=== PATIENT | male | born 1970 | race Two or more races ===

== ENCOUNTER 2020-11-30 10:00 | Outpatient (REF) | payer MEDICARE, SELFPAY ==
[2020-11-30 10:34] LABS: MANUAL DIFF FLAG NO
[2020-11-30 10:43] LABS: Basophils Percent Auto 0.4 % (0-2); Eosinophils Absolute Auto 0.1 X10*3/uL (0.0-0.4); Eosinophils Percent Auto 2.1 % (0-4); Hematocrit 47.1 % (42-52); Hemoglobin 15.9 g/dl (14.0-18.0); Imm Gran Abs Auto 0.02 X10*3/uL (0.00-0.03); Imm Gran Pct Auto 0.3 % (0.0-0.4); Lymphocytes Absolute Auto 1.6 X10*3/uL (1.2-4.9); Lymphocytes Percent Auto 22.8 % (20-40); Mean Corpuscular HGB Conc 33.8 g/dl (31.0-36.0); Mean Corpuscular Volume 85.8 fL (80-98); Mean Platelet Volume 10.1 fL (9.4-12.4); Monocytes Absolute Auto 0.5 X10*3/uL (0.1-1.2); Monocytes Percent Auto 7.5 % (2-11); Neutrophils Absolute Auto 4.6 X10*3/uL (2.0-8.3); Neutrophils Percent Auto 66.9 % (45-73); Platelet Count 211 X10*3/uL (160-400); Red Blood Count 5.49 X10*6/uL (4.60-5.80); Red Cell Distribution Width 13.1 % (11.0-16.0); White Blood Count 6.8 X10*3/uL (4.8-10.8)
[2020-11-30 11:06] LABS: Alanine Aminotransferase 22 U/L (0-40); Albumin Level 4.4 g/dL (3.5-5.0); Alkaline Phosphatase 84 U/L (39-117); Anion Gap 12 (12-20); Aspartate Amino Transferase 15 U/L (5-37); Bilirubin Total 0.5 mg/dL (0.0-1.0); Blood Urea Nitrogen 15 mg/dL (9-16); Calcium 9.7 mg/dL (8.4-10.2); Carbon Dioxide 29 mmol/L (22-29); Chloride 102 mmol/L (96-108); Cholesterol 185 mg/dL; Estimated Glomerular Filt Rate 58; Glucose Fasting 114 mg/dL (60-99); HDL Cholesterol 52 mg/dL; LDL Cholesterol Calculated 106 mg/dl; Potassium 4.9 mmol/L (3.3-5.1); Sodium 138 mmol/L (135-145); Total Protein 6.8 g/dL (6.5-8.0); Triglycerides 135 mg/dL
[2020-11-30 11:28] LABS: Prostate Specific Antigen 0.29 ng/mL (<0.05-4.0)
== END 2020-11-30 10:01 | disposition home or self-care (01) ==
LOC: HO.LAB 10:00
PROVIDERS: PCP Internal Medicine Medical Oncology; Visit Provider Internal Medicine Medical Oncology
DX: Z12.5 Encounter for screening for malignant neoplasm of prostate (principal); G89.29 Other chronic pain; E66.3 Overweight
CPT/HCPCS: 36415; 80053; 80061; 84153; 85025

== ENCOUNTER 2021-06-13 14:33 | Outpatient (REF) | payer MEDICARE, SELFPAY ==
--- NOTE | ~2021-06-13 | CT_ITS ---
EXAMINATION: CT HEAD WITHOUT CONTRAST CLINICAL INFORMATION: Headaches. COMPARISON: None TECHNIQUE: Contiguous axial imaging was performed from the skull base to vertex without intravenous administration of contrast. This CT examination was performed using dose optimization techniques as appropriate, variously including the following: *Automated exposure control *Adjustment of mA and/or kV according to patient size (this includes techniques or standardized protocols for targeted exams where dose is matched to indication/reason for exam; i.e. extremities or head) *Use of iterative reconstruction technique DLP: 952 mGy-cm FINDINGS: There is no evidence of acute intracranial hemorrhage or territorial infarction. No abnormal mass effect or midline shift is seen. Barrera to white matter differentiation is well preserved. No extra-axial fluid collections are identified. 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 The ventricles are normal in size. There is no abnormal attenuation within the brain parenchyma. The osseous structures and soft tissues are normal. The mastoid air cells are well aerated. There is mild mucosal thickening in the ethmoid sinus air cells. CT/CT head/brain wo con IMPRESSION: No acute intracranial pathology.
== END 2021-06-13 14:34 | disposition home or self-care (01) ==
LOC: HO.CT 14:33
PROVIDERS: Visit Provider Internal Medicine Medical Oncology
DX: R51.9 Headache, unspecified (principal)
CPT/HCPCS: 70450

== ENCOUNTER 2022-09-10 21:44 | Emergency (ER) | payer MEDICARE, MEDICAID, SELFPAY ==
--- NOTE | ~2022-09-10 | XR_ITS ---
EXAMINATION: LEFT TIBIA AND FIBULA, LEFT FOOT CLINICAL INFORMATION: Injury with pain COMPARISON: None available. TECHNIQUE: 2 views tib-fib, 3 views foot FINDINGS: Degenerative changes are present in the with narrowing of the medial compartment and some lateral tibial plateau osteophytes. No tibia or fibular fracture is seen. Some mild degenerative changes are present at the first MTT joint. No foot fractures. No joint effusion. XR/XR tibia fibula LT 2V IMPRESSION: Degenerative changes in the knee and foot without evidence of an acute osseous injury.
--- NOTE | ~2022-09-10 | XR_ITS ---
EXAMINATION: LEFT TIBIA AND FIBULA, LEFT FOOT CLINICAL INFORMATION: Injury with pain COMPARISON: None available. TECHNIQUE: 2 views tib-fib, 3 views foot FINDINGS: Degenerative changes are present in the with narrowing of the medial compartment and some lateral tibial plateau osteophytes. No tibia or fibular fracture is seen. Some mild degenerative changes are present at the first MTT joint. No foot fractures. No joint effusion. XR/XR foot LT 2V IMPRESSION: Degenerative changes in the knee and foot without evidence of an acute osseous injury.
[2022-09-10 22:09] VITALS: BP 136/76; PULSE 93; RESP 16; TEMP 36.9; O2SAT 98; BMI 30.8
--- NOTE | 2022-09-11 00:11 | ED.LOWEXIN ---
HPI - Extremity Injury (Lower) General Chief Complaint: Extremity Injury, Lower Stated Complaint: baez/ foot inj. dropped gallon of paint on himsel Time Seen by Provider: 09/11/22 00:05 Source: patient Mode of arrival: ambulatory Limitations: no limitations History of Present Illness HPI Narrative: A 52-year-old male came in for evaluation of left leg/left foot pain after a container of gal of paint accidentally dropped on his left foot a left leg. Pain and feeling numbness to the lower left leg, no laceration. Related Data Allergies Allergy/AdvReac Type Severity Reaction Status Date / Time morphine [MORPHINE] Allergy Unknown RASH Unverified 12/16/19 16:19 Review of Systems Review of Systems: All other systems are reviewed and are negative Constitutional: Reports as per HPI and Reports no additional constitutional complaints Eyes: Reports as per HPI and Reports no additional eye complaints Reports system reviewed and no additional complaints, except as documented Cardiovascular: Reports as per HPI and Reports no additional cardiovascular complaints Respiratory: Reports as per HPI and Reports no additional respiratory complaints Gastrointestinal: Reports as per HPI and Reports no additional gastrointestinal complaints Genitourinary: Reports no additional female genitourinary complaints Musculoskeletal: Reports no additional musculoskeletal complaints Skin/Breast: Reports system reviewed and no additional complaints, except as docu Psychiatric: Reports no additional psychiatric complaints Endocrine: Reports no additional endocrine complaints Hematologic/Lymphatic: Reports no additional hematologic/lymphatic complaints Allergic/Immunologic: Reports no additional allergic/immunologic complaints Reports system reviewed and no additional complaints, except as documented and Reports Abnormal speech present Physical Exam Vital Signs: Vital Signs: Last Vital Signs Temp 98.4 F 09/10/22 22:09 Pulse 93 09/10/22 22:09 Resp 16 09/10/22 22:09 BP 136/76 09/10/22 22:09 Pulse Ox 98 09/10/22 22:09 O2 Del Method Room Air 09/10/22 22:09 BMI result Body Mass Index 30.8 Vital signs have been reviewed as appeared to be correct. Blood pressure normal. Heart rate normal. Respiration rate normal. Temperature normal. Oxygen saturation normal. Appearance: Alert. Oriented X3. No acute distress. Head: Normal external exam. Normocephalic. Atraumatic. No Jacobo signs noted. No raccoon eyes noted Eyes: PERRLA. EOMI. Conjunctiva and sclera normal. Eyelids normal. ENT: TM's Normal. Pharynx normal. Uvula midline. Moist mucous membranes. No trismus noted. No drooling noted. No muffled voice noted. Neck: Normal inspection. Neck supple. FROM. No adenopathy. Thyroid Normal. No meningeal signs. No neck mass noted. CVS: Normal heart rate and rhythm. Heart sound normal. No murmurs noted. Pulses normal throughout. Respiratory: No respiratory distress. Painless inspiration. Breath sounds normal. No wheezes/rales/rhonchi noted. Chest nontender. No accessory muscle usage noted or decreased air movement noted. Abdomen: Soft and nontender. Bowel sounds normal in all 4 quadrants. No distention noted. No organomegaly noted. No visible injury noted. Back: No CVA tenderness. Full range of motion noted. Skin: Skin warm and dry. Normal skin color. Normal skin turgor. No rashes/lesions/lacerations noted. Extremities: Left lower extremity: Neurovascularly intact, intact PT/DP, sensation is intact to light touch and 2 point discrimination. Neuro: Oriented X 3. Cranial nerve exam: II-XII are grossly intact No motor deficit. No sensory deficit. Reflexes normal. Medical Decision Making Differential Diagnosis Differential Diagnoses: The differential diagnosis associated with the presentation includes (Foot fracture, foot contusion, leg fracture, contusion.) Admission/Observation Consideration of admission/observation: Escalation of care including admission/observation considered Independent Interpretation I performed an independent interpretation of an: Plain X-Ray (Left foot/left tib-fib: No acute fracture) Radiology Impression Discussion of test interpretation with radiology: I have reviewed the radiologist's reading. Discharge Plan Discharge Clinical Impression: Contusion of left lower extremity Patient Disposition: Home, Self-Care Instructions: Contusion in Adults (ED) Additional Instructions: Take ibuprofen 200 mg tablet every 6 hours if needed for pain, apply ice to the left foot and left leg.
[2022-09-11] MEDS: Ibuprofen 600 MG TABLET PO (00:18)
[2022-09-11] MEDS: oxyCODONE HCl Immed Release 5 MG TABLET PO (00:19)
== END 2022-09-11 00:30 | disposition home or self-care (01) ==
PROVIDERS: Emergency Provider Emergency Medicine; PCP Internal Medicine Medical Oncology
DX: S90.32XA Contusion of left foot, initial encounter (principal); X58.XXXA Exposure to other specified factors, initial encounter; Y93.89 Activity, other specified; Y92.9 Unspecified place or not applicable; Y99.9 Unspecified external cause status
CPT/HCPCS: 73590; 73620; 99283; 99284

== ENCOUNTER 2023-12-29 14:08 | Outpatient (AMB) | payer MEDICARE, MEDICAID, SELFPAY ==
--- NOTE | 2023-12-29 14:17 | AM.OFFWIN_ITS ---
Intake Vital Signs 12/29/23 14:23 Height 6 ft 2 in Weight 198 lb 8 oz BMI 25.5 BP 130/72 Blood Pressure Location Lt brachial Position Sitting Pulse 109 H Pulse Source Pulse Oximeter Pulse Oximetry (%) 97 Oxygen Delivery Method Room Air Intake Visit Reasons: EP- uncontrol diabetes Intake Note: Patient is here today for sick visit for uncontrolled DM, high blood sugar, and Migraine. 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 He states he does not have a primary care doctor right now so he has not had medications in quite a long time. His girlfriend is with him today. His 1st complaint is that he has chronic migraines, he has photosensitivity light sensitivity but no nausea or vomiting. He states he did have a head CT which was negative for any acute abnormalities 2 years ago. He has taken Excedrin migraine with no relief in his symptoms. He also will use a red bull with no relief in his symptoms. His 2nd complaint is that he has diabetes in his blood sugars are ?all over the map? he states when he woke up this morning his blood sugar was 152, he states this is part of why he does not feel good. He was on metformin at 1 time but has not taken it in years as he lost his primary care doctor and has nobody to prescribe it for him. His 3rd complaint is that he always feels like he has the flu but he never seems to get anybody else sick. When I asked him to describe this he tells me that he always has the chills and sweats profusely at night. He does endorse a 30 lb weight loss over the last 6 months. He states he has not been trying to eat way and he eats a ton of junk food as well as a lot of meat and potatoes. [facility] Social History Patient Tobacco Use Status: Never used Tobacco Review of Systems Const All systems reviewed & are unremarkable except as noted in HPI and below Physical Exam Vital Signs: Last Vital Signs Pulse 109 H 12/29/23 14:23 BP 130/72 12/29/23 14:23 Pulse Ox 97 12/29/23 14:23 Oxygen Delivery Method Room Air 12/29/23 14:23 BMI result Body Mass Index 25.5 Const General: cooperative, comfortable, no acute distress, well developed and tired appearing Orientation/consciousness: patient oriented x3 Limitations: no limitations HEENT Head: Yes normal to inspection Ears: hearing grossly normal bilaterally General nose exam: Normal external nose present Face and sinus: Yes normal facial exam Eyes General: appearance normal, both eyes and all related structures Neck Neck: Yes normal visual inspection and Yes full ROM Resp Effort & Inspection: normal respiratory effort and able to speak in complete sentences Skin General skin exam: no rashes or lesions noted Neuro General: patient oriented x3 Extrem General: Yes normal to inspection Results AMB Random Glucose (hemocue) AMB Random Glucose (hemocue) 112 mg/dL Last Edit by TARIQ Peña on 12/29/23 14:32 AMB Hemoglobin A1c AMB Hemoglobin A1c 6.5 % Last Edit by TARIQ Peña on 12/29/23 15:11 Results Reviewed Results Reviewed: Laboratory Last Values Random Glu (Clinic) 112 mg/dL 12/29/23 14:22 Assessment & Plan Assessment & Plan (1) Migraines: Code(s): G43.909 - Migraine, unspecified, not intractable, without status migrainosus Qualifiers: Migraine type: unspecified Status migrainosus presence: without status migrainosus Intractability: not intractable Qualified Code(s): G43.909 - Migraine, unspecified, not intractable, without status migrainosus Plan: Sent sumatriptan to patient's pharmacy, explained how to take the medication. (2) Unintentional weight loss: Code(s): R63.4 - Abnormal weight loss Plan: Called the search and rescue officer of [facility] in [place] and obtained an appointment for the patient to establish care with Marimar Falcon PA-C on FridayJanuary 01 at 1pm. Gave the patient all of the information and he assured me he would be there. (3) Night sweats: Code(s): R61 - Generalized hyperhidrosis Plan: See above with a concern for underlying malignancy, sent note to above PA-C to advise. (4) Diabetes: Code(s): E11.9 - Type 2 diabetes mellitus without complications Qualifiers: Diabetes mellitus complication status: with hyperglycemia Diabetes mellitus long term care pharmacist insulin use: without long term care pharmacist use Diabetes mellitus type: type 2 Qualified Code(s): E11.65 - Type 2 diabetes mellitus with hyperglycemia Plan: A1c 6.5%, POC 112, see above for pt to establish care with new PCP Plan see above Orders: Orders AMB Random Glucose (hemocue) Today Z13.9 - Encounter for screening, unspecified AMB Hemoglobin A1c Today Z13.9 - Encounter for screening, unspecified Medications: New sumatriptan succinate take 1 tab at onset of headache; if no relief may repeat 1 tab after at least 2 hrs; max = 4 tabs/24 hr PO 7 tabs 0RF Coding Level of Care Code New Pt Level 5 (34591) Diagnoses Migraine without status migrainosus, not intractable, unspecified migraine type G43.909 Migraine type: unspecified Status migrainosus presence: without status migrainosus Intractability: not intractable Unintentional weight loss R63.4 Night sweats R61 Type 2 diabetes mellitus with hyperglycemia, without long-term current use of insulin E11.65 Diabetes mellitus complication status: with hyperglycemia Diabetes mellitus group home insulin use: without long term care pharmacist use Diabetes mellitus type: type 2
[2023-12-29 14:23] VITALS: BP 130/72; PULSE 109; O2SAT 97; BMI 25.5
== END 2023-12-29 15:07 | disposition home or self-care (01) ==
PROVIDERS: PCP Internal Medicine Medical Oncology; Visit Provider Physician Assistant
DX: G43.909 Migraine, unspecified, not intractable, without status migrainosus (principal); R63.4 Abnormal weight loss; R61 Generalized hyperhidrosis; E11.65 Type 2 diabetes mellitus with hyperglycemia

== ENCOUNTER → 2023-12-29 14:08 | Outpatient (BNVA) | payer MEDICARE, MEDICAID, SELFPAY | PROVIDERS: PCP Internal Medicine Medical Oncology | DX: E11.65 Type 2 diabetes mellitus with hyperglycemia (principal); G43.909 Migraine, unspecified, not intractable, without status migrainosus; R63.4 Abnormal weight loss; R61 Generalized hyperhidrosis | CPT/HCPCS: 82948; 83036; 99202 ==

== ENCOUNTER 2024-01-02 13:04 | Outpatient (AMB) | payer MEDICARE, SELFPAY ==
[2024-01-02 13:07] VITALS: BP 130/70; PULSE 103; TEMP 36.7; O2SAT 96; BMI 26.1
--- NOTE | 2024-01-02 13:07 | A.OFFPC_ITS ---
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 Ping Pong Table Required: No Allergies morphine [MORPHINE] Allergy (Unknown, Verified 01/02/24 13:18) RASH Medication List - Last Reconciled 01/02/24 by Marimar Falcon PA-C sumatriptan succinate take 1 tab at onset of headache; if no relief may repeat 1 tab after at least 2 hrs; max = 4 tabs/24 hr PO Tobacco use date assessed: 01/02/24 Dental Screening Dental Screen Date: 01/02/24 Did you have a dental visit in the last 12 months?: No Did you have a dental problem in the last 6 months where you did not have access to dental care?: No HPI new patient follow up from [facility] HPI Details 53-year-old male with past medical histo ry of diabetes and migraines coming to the office for the 1st time. In review of the notes, patient was seen in [facility] [place] [facility] 12/29/2023 for several complaints including diabetes and night sweats. Patient was given sumatriptan to use as needed and A1c was 6.5%. Patient states he was previously being seen by primary care 2 years ago and has not been seen since. He had has not had colonoscopy or lung cancer screening performed. He mentioned in the last 2 years he has been having issues with unintentional weight loss and profuse sweating as well as migraines. He has migraines 4-5 times per week typically with nausea and vomiting and we will occasionally have blood in his vomit. He has a history of untreated acid reflux and as a result has profuse abdominal pain the past 5 years. He does also mentioned inconsistent stools. He also mentioned his anxiety has been very high in the last few years previously treated with Klonopin. [facility] Surgical History (Updated 01/02/24 @ 13:21 by Marimar Falcon PA-C) History of lumbar fusion S/P ACL repair S/P nasal surgery Family History (Updated 01/02/24 @ 13:21 by Marimar Falcon PA-C) Maternal Grandmother Renal cancer Social History Housing: House Patient Tobacco Use Status: Current everyday Tobacco user Tobacco use type: Cigarette Cigarette Packs Per Day: 1 Years Smoked: 30 e-Cigarette/Vaping Use: Never Used service: No Current occupational status: unemployed Cognitive needs: No Hearing needs: No Vision needs: No Questionnaire PHQ-9 Over the last 2 weeks, how often have you been bothered by any of the following problems? 1. Little interest or pleasure in doing things: not at all 2. Feeling down, depressed, or hopeless: not at all 3. Trouble falling or staying asleep, or sleeping too much: not at all 4. Feeling tired or having little energy: not at all 5. Poor appetite or overeating: not at all 6. Feeling bad about yourself - or that you are a failure or have let yourself or your family down: not at all 7. Trouble concentrating on things, such as reading the newspaper or watching television: not at all 8. Moving or speaking so slowly that other people could have noticed. Or the opposite - being so fidgety or restless that you have been moving around a lot more than usual: not at all 9. Thoughts that you would be better off or of hurting yourself in some way: not at all Total score: 0 Depression Screening Interpretation: Negative Depression Screening Done: Yes 89151 - PHQ-9 Billing: Yes Source: Developed by Drs. Michel Valles, Radha Horton, Jorge Walter and colleagues, with an educational ashley from [employer]. [employer] Questionnaire Are you currently unemployed and looking for a job?: No AUDIT C Alcohol Use Questionnaire (AUDIT-C) 1. How often do you have a drink containing alcohol?: 2-3 times a week 2. How many drinks containing alcohol do you have on a typical day when you are drinking?: 3 or 4 3. How often do you have six or more drinks on one occasion?: Never Total Score: 4 RAMAKRISHNA-7 AMB Questionnaire RAMAKRISHNA-7 Date RAMAKRISHNA - 7 assessed: 01/02/24 Feeling nervous, anxious, or on edge: 3 = Nearly every day Not being able to stop or control worryin = Nearly every day Worrying too much about different things: 3 = Nearly every day Trouble relaxin = Nearly every day Being so restless that it is hard to sit still: 3 = Nearly every day Becoming easily annoyed or irritable: 3 = Nearly every day Feeling afraid as if something awful might happen: 3 = Nearly every day Total RAMAKRISHNA-7 score (0-4 normal; 5-9 mild; 10-14 moderate; 15-21 severe): 21 Source: Developed by Drs. Michel Valles, Radha Horton, Jorge Walter and colleagues, with an educational ashley from [employer]. RAMAKRISHNA-7 Assessment Billing RAMAKRISHNA-7 Assessment Tool: RAMAKRISHNA-7 Assessment 36913 Review of Systems Const Denies body aches, Reports excessive sweating, Denies fatigue, Denies fever(s), Denies frequent falls, Reports headache(s), Reports night sweats, Denies poor appetite, Denies weakness and Reports weight loss Eyes Reports no additional complaints and Denies change in vision ENT Denies dysphagia, Denies dizziness, Denies facial pain, Reports headache(s), Denies nasal congestion and Denies odynophagia Card Denies chest pain, Denies syncope, Denies irregular heart rhythm, Denies leg edema, Denies lightheadedness and Denies dyspnea Resp Denies cough and Denies dyspnea GI Details: Genital his abdominal discomfort Denies melena, Denies hematochezia, Denies constipation, Denies dysphagia, Reports dyspepsia, Reports heartburn, Denies diarrhea, Reports nausea, Denies odynophagia and Reports vomiting Denies dysuria, Denies urinary frequency, Denies urinary hesitancy and Denies urinary urgency Musc Denies back pain and Denies myalgias Skin/Breast Reports system reviewed and no additional complaints, except as documented Neuro Denies dizziness, Denies syncope, Denies frequent falls, Reports headache(s) and Denies weakness Psych Reports no additional complaints Endo Reports excessive sweating and Denies fatigue Physical exam (Primary Care) Vital Signs: Last Vital Signs Temp 98.0 F 01/02/24 13:07 Pulse 103 H 01/02/24 13:07 BP 130/70 01/02/24 13:07 Pulse Ox 96 01/02/24 13:07 Oxygen Delivery Method Room Air 01/02/24 13:07 BMI result Body Mass Index 26.1 Tobacco/Smoking Status: Tobacco use Status Tobacco use date assessed 01/02/24 01/02/24 13:09 Patient Tobacco Use Status Current everyday Tobacco 01/02/24 13:14 Tobacco use type Cigarette 01/02/24 13:10 e-Cigarette/Vaping Use Never Used 01/02/24 13:10 Are you ready to quit: No Tobacco cessation counseling provided: Yes Items discussed: Nicotine replacement Relapse Prevention: discussed the importance of a supportive environment and discussed dietary, exercise and/or lifestyle changes Number of minutes spent counselin CPT code: 67515 - 4-10 Minutes PHQ-9: PHQ-9 Score PHQ-9: Total score 0 01/02/24 14:27 Depression Screening Interpretation: Negative Const General: cooperative, healthy appearing, comfortable and no acute distress Orientation/consciousness: patient oriented x3 HENMT Head: Yes normocephalic Ears: hearing grossly normal bilaterally General nose exam: Normal external nose present Eyes General: appearance normal, both eyes and all related structures Conjunctivae: conjunctivae normal Neck Neck: Yes full ROM and Yes no lymphadenopathy Resp Effort & Inspection: normal respiratory effort Auscultation: clear to auscultation bilaterally, no crackles, no rales, no rhonchi and no wheezes Cardio Rate: regular rate Rhythm: regular rhythm GI Other: Generalized abdominal tenderness palpation Palpation (GI): not firm, no guarding, not rigid, no hernias and no masses Skin General skin exam: no rashes or lesions noted Neuro General: patient oriented x3 Gait exam (Neuro): Normal gait present Extrem General: Yes normal to inspection, Yes full ROM and No edema Psych Affect: normal affect Attitude: cooperative Insight: Good insight present (Psych) Judgement: Good judgement present (Psych) Coding Level of Care Code New Pt Level 4 (93311) Diagnoses Type 2 diabetes mellitus with hyperglycemia, without long-term current use of insulin E11.65 Diabetes mellitus complication status: with hyperglycemia Diabetes mellitus senior living insulin use: without media relations coordinator use Diabetes mellitus type: type 2 Night sweats R61 Unintentional weight loss R63.4 Migraine without status migrainosus, not intractable, unspecified migraine type G43.909 Intractability: not intractable Migraine type: unspecified Status migrainosus presence: without status migrainosus Anxiety F41.9 Screening for colorectal cancer Z12.11; Z12.12 Tobacco abuse Z72.0 GERD (gastroesophageal reflux disease) K21.9 Abdominal tenderness R10.819 Additional Codes RAMAKRISHNA-7 Assessment Billing - RAMAKRISHNA-7 Assessment Tool: RAMAKRISHNA-7 Assessment 38806 ([id number]) Vital Signs *Quality* - CPT code: 40650 - 4-10 Minutes ([id number]) Assessment & Plan Assessment & Plan (1) Diabetes: Code(s): E11.9 - Type 2 diabetes mellitus without complications Category: Medical Qualifiers: Diabetes mellitus complication status: with hyperglycemia Diabetes mellitus media relations coordinator insulin use: without senior living use Diabetes mellitus type: type 2 Qualified Code(s): E11.65 - Type 2 diabetes mellitus with hyperglycemia Plan: Patient meets clinical criteria for diabetes A1c of 6.5%. Goal for this patient is A1c less than 7% and no medication is indicated at this time. Decrease the amount of carbohydrates such as pasta, bread, rice, and potatoes and limit the amount of sweets. Although fruits are generally healthy they should be eaten in moderation as they are still high in sugar. (2) Night sweats: Code(s): R61 - Generalized hyperhidrosis Category: Medical Plan: Patient has general hyperhidrosis throughout the day and particularly at night as well. These symptoms have been going on for the past 2 years and have not worsened or improved during that time. Ordered for blood work to begin workup. (3) Unintentional weight loss: Code(s): R63.4 - Abnormal weight loss Category: Medical Plan: Patient has been having unintentional weight loss for the last 2 years and has not been evaluated for this in the past. Ordered for blood work for further investigation. (4) Migraines: Code(s): G43.909 - Migraine, unspecified, not intractable, without status migrainosus Category: Medical Qualifiers: Intractability: not intractable Migraine type: unspecified Status migrainosus presence: without status migrainosus Qualified Code(s): G43.909 - Migraine, unspecified, not intractable, without status migrainosus Plan: Patient has history of migraines and has been using [id number] analgesics for pain management. His migraines described as one-sided with nausea and vomiting typically beginning with tunnel vision and can last several hours to several days. He was given sumatriptan at the walk-in clinic and has not tried this medication yet. We will follow up at next appointment and can consider neurology referral if migraines do not improve. (5) Anxiety: Code(s): F41.9 - Anxiety disorder, unspecified Category: Medical Plan: Patient has history of anxiety and was using Klonopin in the past. RAMAKRISHNA-7 testing positive today referral placed to outpatient psychiatric clinic. (6) Screening for colorectal cancer: Code(s): Z12.11 - Encounter for screening for malignant neoplasm of colon; Z12.12 - Encounter for screening for malignant neoplasm of rectum Category: Medical Plan: Patient is not up-to-date on colonoscopy and referral was placed for GI. (7) Tobacco abuse: Code(s): Z72.0 - Tobacco use Category: Medical Plan: Strongly advised to stop smoking and offered nicotine replacement therapy which has declined at this visit. Enrolled in lung cancer screening program. (8) GERD (gastroesophageal reflux disease): Code(s): K21.9 - Gastro-esophageal reflux disease without esophagitis Category: Medical Plan: Avoid trigger foods such as citrus, tomato products, soda, caffeine, spicy foods and other foods that may be irritating to your stomach. Avoid laying flat 3-4 hours after eating and elevate the head of the bed 30 degrees to prevent acid from moving into the esophagus. We will start patient on omeprazole 20 mg and follow up in 1 month. (9) Abdominal tenderness: Code(s): R10.819 - Abdominal tenderness, unspecified site Category: Medical Plan: Patient has abdominal tenderness on exam to deep palpation. He states this has been present for the last 5 years and has changed or worsened. He attributes this pain to his acid reflux. We will trial omeprazole and consider abdominal ultrasound. Plan This note was constructed using voice recognition software. While every effort has been made to ensure accuracy and supervisor mechanic boilermaking, still areas may have been included sometimes these areas may affect the content or meeting of the given symptoms. Total time spent caring for the patient today was 30 minutes. This includes time spent before the visit reviewing the chart, time spent during the visit, and time spent after the visit and documentation. Orders: Orders Complete Blood Count Auto Diff Today Z00.00 - Encounter for general adult medical examination without abnormal findings Comprehensive Met. Panel Today Z00.00 - Encounter for general adult medical examination without abnormal findings TSH reflex Free T4 Today Z00.00 - Encounter for general adult medical examination without abnormal findings Vitamin D 25-OH (D2 and D3) Today Z00.00 - Encounter for general adult medical examination without abnormal findings Lipid Panel Today Z00.00 - Encounter for general adult medical examination without abnormal findings Free T4 (Free Thyroxine) Today Z00.00 - Encounter for general adult medical examination without abnormal findings Vitamin B12 and Folate Today Z00.00 - Encounter for general adult medical examination without abnormal findings PSA, Ultra Sensitive Today Z00.00 - Encounter for general adult medical examination without abnormal findings Referrals Gastroenterology Referral K21.9 - Gastro-esophageal reflux disease without esophagitis, R10.819 - Abdominal tenderness, unspecified site, Z12.11 - Encounter for screening for malignant neoplasm of colon Lung Cancer Screening Referral Z72.0 - Tobacco use Psychiatry Outpatient Consultation Service F41.9 - Anxiety disorder, unspecified Medications: New omeprazole 20 mg PO DAILY 30 caps 1RF
== END 2024-01-02 13:39 | disposition home or self-care (01) ==
PROVIDERS: PCP Internal Medicine Medical Oncology
DX: E11.65 Type 2 diabetes mellitus with hyperglycemia (principal); R61 Generalized hyperhidrosis; R63.4 Abnormal weight loss; G43.909 Migraine, unspecified, not intractable, without status migrainosus; F41.9 Anxiety disorder, unspecified; Z12.11 Encounter for screening for malignant neoplasm of colon; Z12.12 Encounter for screening for malignant neoplasm of rectum; Z72.0 Tobacco use; K21.9 Gastro-esophageal reflux disease without esophagitis; R10.819 Abdominal tenderness, unspecified site

== ENCOUNTER → 2024-01-02 13:04 | Outpatient (BNVA) | payer MEDICARE, SELFPAY | PROVIDERS: PCP Internal Medicine Medical Oncology | DX: E11.65 Type 2 diabetes mellitus with hyperglycemia (principal); R61 Generalized hyperhidrosis; R63.4 Abnormal weight loss; G43.909 Migraine, unspecified, not intractable, without status migrainosus; F41.9 Anxiety disorder, unspecified; R10.819 Abdominal tenderness, unspecified site; K21.9 Gastro-esophageal reflux disease without esophagitis; Z72.0 Tobacco use | CPT/HCPCS: 96127; 99202 ==

== ENCOUNTER 2024-01-03 08:18 | Outpatient (REF) | payer MEDICARE, SELFPAY ==
[2024-01-03 08:29] LABS: MANUAL DIFF FLAG NO
[2024-01-03 09:23] LABS: Basophils Percent Auto 0.4 % (0-2); Eosinophils Absolute Auto 0.3 X10*3/uL (0.0-0.4); Eosinophils Percent Auto 4.3 % (0-4); Hemoglobin 13.7 g/dl (14.0-18.0); Imm Gran Abs Auto 0.01 X10*3/uL (0.00-0.03); Imm Gran Pct Auto 0.1 % (0.0-0.4); Lymphocytes Absolute Auto 2.2 X10*3/uL (1.2-4.9); Lymphocytes Percent Auto 33.2 % (20-40); Mean Corpuscular HGB Conc 33.4 g/dl (31.0-36.0); Mean Corpuscular Volume 86.9 fL (80.0-98.0); Mean Platelet Volume 10.8 fL (9.4-12.4); Monocytes Absolute Auto 0.7 X10*3/uL (0.1-1.2); Monocytes Percent Auto 10.8 % (2-11); Neutrophils Absolute Auto 3.4 x10*3/uL (2.0-8.3); Neutrophils Percent Auto 51.2 % (45-73); Platelet Count 214 X10*3/uL (160-400); Red Blood Count 4.72 X10*6/uL (4.60-5.80); Red Cell Distribution Width 12.8 % (11.0-16.0); White Blood Count 6.7 X10*3/uL (4.8-10.8)
[2024-01-03 09:58] LABS: Alanine Aminotransferase 16 U/L (0-40); Albumin Level 4.2 g/dL (3.5-5.0); Alkaline Phosphatase 70 U/L (39-117); Anion Gap 11 (12-20); Aspartate Amino Transferase 11 U/L (5-37); Bilirubin Total 0.3 mg/dL (0.0-1.0); Blood Urea Nitrogen 15 mg/dL (9-16); Calcium 9.3 mg/dL (8.4-10.2); Carbon Dioxide 32 mmol/L (22-29); Chloride 104 mmol/L (96-108); Cholesterol 127 mg/dL (<200); Estimated Glomerular Filt Rate > 60; Glucose Random 105 mg/dL (60-115); HDL Cholesterol 57 mg/dL (>40); LDL Cholesterol Calculated 53 mg/dL (<100); Potassium 4.5 mmol/L (3.3-5.1); Sodium 142 mmol/L (135-145); Total Protein 6.4 g/dL (6.5-8.0); Triglycerides 85 mg/dL (<150)
[2024-01-03 10:18] LABS: Free T4 (Free Thyroxine) 1.07 ng/dL (0.71-1.85); TSH reflex Free T4 0.47 uIU/mL (0.32-4.0)
[2024-01-03 10:51] LABS: Folate 7.9 ng/mL (> or = 4.0); Vitamin B12 663 pg/mL (200-900)
[2024-01-09 12:13] LABS: Vitamin D 25-OH, D2 <4 ng/mL; Vitamin D 25-OH, D3 25 ng/mL; Vitamin D 25-OH, Total 25 ng/mL (30-100)
[2024-01-11 14:48] LABS: PSA, Ultra Sensitive 0.37 ng/mL
== END 2024-01-03 08:19 | disposition home or self-care (01) ==
LOC: HO.LAB 08:18
DX: Z00.00 Encounter for general adult medical examination without abnormal findings (principal); Z12.5 Encounter for screening for malignant neoplasm of prostate
CPT/HCPCS: 36415; 80053; 80061; 82306; 82607; 82746; 84153; 84439; 84443; 85025

== ENCOUNTER 2024-02-02 11:29 | Outpatient (AMB) | payer MEDICARE, SELFPAY ==
[2024-02-02 11:34] VITALS: BP 124/72; PULSE 83; O2SAT 95; BMI 25.9
--- NOTE | 2024-02-02 11:34 | MHC.PC.OV ---
Vital Signs 02/02/24 11:34 Height 6 ft 2 in Weight 202 lb BMI 25.9 BP 124/72 Blood Pressure Location Lt brachial Position Sitting Pulse 83 Pulse Source Pulse Oximeter Pulse Oximetry (%) 95 Oxygen Delivery Method Room Air Intake Visit Reasons: annual exam Intake Note: Patient is here today for a physical. Allergies morphine [MORPHINE] Allergy (Unknown, Verified 02/02/24 11:36) RASH Medication List - Last Reconciled 02/02/24 by Marimar Falcon PA-C omeprazole 20 mg PO DAILY sumatriptan succinate take 1 tab at onset of headache; if no relief may repeat 1 tab after at least 2 hrs; max = 4 tabs/24 hr PO Tobacco use date assessed: 02/02/24 Dental Screening Dental Screen Date: 01/02/24 Did you have a dental visit in the last 12 months?: No Did you have a dental problem in the last 6 months where you did not have access to dental care?: No HPI annual exam HPI Details 54-year-old male with past medical history of diabetes and migraines coming to the office for annual physical exam. At his last visit he was referred for colonoscopy and lung cancer screening program and started on omeprazole and sumatriptan. Patient was also scheduled for outpatient psych consultation which was scheduled for 02/05/2024. Patient presents today with his partner, he states since his last visit he has not had any more night sweats. He has been having difficulty sleeping which has been ongoing for several years and has never had a sleep study. His partner reports that he does snore at night but denies any witnessed apneic episodes. He will have migraines daily and uses sumatriptan which will help occasionally. His headaches will often start behind his eyes and in the sinuses and progress to one sided occasionally bilateral headache. He has chronic back pain and has history of L4-L5 spinal fusion over ten years ago and has not had imaging or follow up in many years. [facility] Surgical History (Updated 01/02/24 @ 13:21 by Marimar Falcon PA-C) History of lumbar fusion S/P ACL repair S/P nasal surgery Family History (Updated 01/02/24 @ 13:21 by Marimar Falcon PA-C) Maternal Grandmother Renal cancer Social History Housing: House Patient Tobacco Use Status: Current everyday Tobacco user Tobacco use type: Cigarette Cigarette Packs Per Day: 1 Years Smoked: 30 e-Cigarette/Vaping Use: Never Used service: No Current occupational status: unemployed Cognitive needs: No Hearing needs: No Vision needs: No Questionnaire PHQ-9 Over the last 2 weeks, how often have you been bothered by any of the following problems? 1. Little interest or pleasure in doing things: more than half the days 2. Feeling down, depressed, or hopeless: more than half the days 3. Trouble falling or staying asleep, or sleeping too much: nearly every day 4. Feeling tired or having little energy: nearly every day 5. Poor appetite or overeating: nearly every day 6. Feeling bad about yourself - or that you are a failure or have let yourself or your family down: not at all 7. Trouble concentrating on things, such as reading the newspaper or watching television: not at all 8. Moving or speaking so slowly that other people could have noticed. Or the opposite - being so fidgety or restless that you have been moving around a lot more than usual: not at all 9. Thoughts that you would be better off or of hurting yourself in some way: not at all Total score: 13 Depression Screening Interpretation: Positive (appt with psych this week) Depression Screening Follow-up: Existing condition Depression Screening Done: Yes 74150 - PHQ-9 Billing: Yes Source: Developed by Drs. Michel Valles, Radha Horton, Jorge Walter and colleagues, with an educational ashley from [employer]. Thrive Questionnaire Date Thrive assessed: 02/02/24 I am a: Patient What is your living situation today?: I have a steady place to live Within the past 12 months, did the food you bought not last and you didn't have the money to get more?: Sometimes True Within the past 12 months, did you worry whether your food would run out before you got money to buy more?: Sometimes True Do you have trouble paying for medicines?: No Do you have trouble getting transportation to medical appointments?: No Do you have trouble paying your heating and electricity bill?: No Do you have trouble taking care of your child, family member or friend?: No Do you have trouble with day-to-day activities such as bathing, preparing meals, shopping, managing finances, etc.?: No Are you interested in more education?: No Please select the resources that you would like help with: None Currently or been in a relationship where the following occur: I choose not to answer THRIVE Score: 2 AUDIT C Alcohol Use Questionnaire (AUDIT-C) 1. How often do you have a drink containing alcohol?: 2-3 times a week 2. How many drinks containing alcohol do you have on a typical day when you are drinking?: 3 or 4 3. How often do you have six or more drinks on one occasion?: Never Total Score: 4 RAMAKRISHNA-7 AMB Questionnaire RAMAKRISHNA-7 Date RAMAKRISHNA - 7 assessed: 01/02/24 Feeling nervous, anxious, or on edge: 3 = Nearly every day Not being able to stop or control worryin = Nearly every day Worrying too much about different things: 3 = Nearly every day Trouble relaxin = Nearly every day Being so restless that it is hard to sit still: 3 = Nearly every day Becoming easily annoyed or irritable: 3 = Nearly every day Feeling afraid as if something awful might happen: 3 = Nearly every day Total RAMAKRISHNA-7 score (0-4 normal; 5-9 mild; 10-14 moderate; 15-21 severe): 21 Source: Developed by Drs. Michel Valles, Radha Horton, Jorge Walter and colleagues, with an educational ashley from [employer]. RAMAKRISHNA-7 Assessment Billing RAMAKRISHNA-7 Assessment Tool: RAMAKRISHNA-7 Assessment 14020 Review of Systems Const Denies body aches, Denies fatigue, Denies fever(s), Denies frequent falls, Reports headache(s) (Daily), Denies night sweats, Denies weakness and Denies weight loss Eyes Reports no additional complaints and Denies change in vision ENT Denies dysphagia, Denies dizziness, Denies facial pain, Reports headache(s) (Daily), Denies nasal congestion and Denies odynophagia Card Denies chest pain, Denies syncope, Denies irregular heart rhythm, Denies leg edema, Denies lightheadedness and Denies dyspnea Resp Denies cough and Denies dyspnea GI Reports abdominal pain, Reports constipation, Denies dysphagia, Denies dyspepsia, Reports diarrhea, Denies nausea, Denies odynophagia and Denies vomiting Denies dysuria, Denies urinary frequency, Denies urinary hesitancy and Denies urinary urgency Musc Denies back pain and Denies myalgias Skin/Breast Reports system reviewed and no additional complaints, except as documented Neuro Denies dizziness, Denies syncope, Denies frequent falls, Reports headache(s) (Daily) and Denies weakness Psych Reports no additional complaints Endo Denies fatigue Physical exam (Primary Care) Vital Signs: Oxygen Delivery Method Room Air 02/02/24 11:34 BMI result Body Mass Index 25.9 Tobacco/Smoking Status: Tobacco use Status Tobacco use date assessed 01/02/24 01/02/24 13:09 Patient Tobacco Use Status Current everyday Tobacco 01/02/24 13:14 Tobacco use type Cigarette 01/02/24 13:10 e-Cigarette/Vaping Use Never Used 01/02/24 13:10 Tobacco cessation counseling provided: Yes Items discussed: Nicotine replacement Relapse Prevention: discussed the importance of a supportive environment and discussed dietary, exercise and/or lifestyle changes CPT code: Less than 3 minutes Depression Screening Interpretation: Positive (appt with psych this week) Depression Screening Follow-up: Existing condition Currently or been in a relationship where the following occur: I choose not to answer Const General: cooperative, healthy appearing, comfortable and no acute distress Orientation/consciousness: patient oriented x3 HENMT Head: Yes normocephalic Ears: hearing grossly normal bilaterally, external ears normal, TM's normal bilaterally and EAC's normal General nose exam: Normal external nose present Face and sinus: Yes normal facial exam and Yes sinuses nontender Mouth: Normal oral and palatal mucosa present and tongue normal Throat: Yes posterior oropharynx normal Eyes General: appearance normal, both eyes and all related structures Conjunctivae: conjunctivae normal Pupils: Equal, round and reactive pupils present EOM: EOMs intact bilaterally and No Nystagmus present Neck Neck: Yes normal visual inspection, Yes full ROM and Yes no lymphadenopathy Chest Chest palpation & inspection: normal inspection of the chest Resp Effort & Inspection: normal respiratory effort Auscultation: clear to auscultation bilaterally, no crackles, no rales, no rhonchi, no wheezes and breath sounds present Cardio Rate: regular rate Rhythm: regular rhythm Peripheral pulses: radial pulses present and dorsalis pedis present GI Inspection: Yes normal to inspection and No Abdominal wall edema Palpation (GI): Soft to palpation, not firm and nontender Auscultation: normal bowel sounds Rectal Exam - Male: Yes deferred General: Yes no CVA tenderness Back/Spine/Pelvis Other: Positive straight leg raise bilaterally. Tenderness to palpation over lumbar spine and paraspinous muscles Back: no CVA tenderness Skin General skin exam: no rashes or lesions noted Neuro General: patient oriented x3 Cranial nerves: Yes Equal, round and reactive pupils present, Yes Midline tongue present, Yes Ability to bilaterally elevate shoulders present and No Nystagmus present Gait exam (Neuro): Normal gait present Extrem General: Yes normal to inspection, Yes full ROM, No no pedal edema and No edema Psych Speech and movement: Normal speech and movement present Affect: normal affect Insight: Good insight present (Psych) Judgement: Good judgement present (Psych) Coding Level of Care Code Est Pt Level 3 (96458) Est Pt Prev Care 40-64y(86274) Diagnoses GERD (gastroesophageal reflux disease) K21.9 Anxiety F41.9 Tobacco abuse Z72.0 Type 2 diabetes mellitus with hyperglycemia, without long-term current use of insulin E11.65 Diabetes mellitus complication status: with hyperglycemia Diabetes mellitus intermediate insulin use: without intermediate use Diabetes mellitus type: type 2 Migraine without status migrainosus, not intractable, unspecified migraine type G43.909 Intractability: not intractable Migraine type: unspecified Status migrainosus presence: without status migrainosus Annual physical exam Z00.00 Low back pain M54.50 Hypersomnolence G47.10 Additional Codes RAMAKRISHNA-7 Assessment Billing - RAMAKRISHNA-7 Assessment Tool: RAMAKRISHNA-7 Assessment 59797 ([id number]) Assessment & Plan Assessment & Plan (1) GERD (gastroesophageal reflux disease): Code(s): K21.9 - Gastro-esophageal reflux disease without esophagitis Category: Medical Plan: Avoid trigger foods such as citrus, tomato products, soda, caffeine, spicy foods and other foods that may be irritating to your stomach. Avoid laying flat 3-4 hours after eating and elevate the head of the bed 30 degrees to prevent acid from moving into the esophagus. Continue on omeprazole. Abdominal pain and acid reflux has improved since being on the omeprazole (2) Anxiety: Code(s): F41.9 - Anxiety disorder, unspecified Category: Medical Plan: Patient was referred to outpatient psych clinic and has a appointment 02/05/2024. (3) Tobacco abuse: Code(s): Z72.0 - Tobacco use Category: Medical Plan: Smoking cigarettes and the use of tobacco can be harmful. We discussed the importance of stopping and options to aid in smoking cessation. Lung cancer screening has not been completed yet. (4) Diabetes: Code(s): E11.9 - Type 2 diabetes mellitus without complications Category: Medical Qualifiers: Diabetes mellitus complication status: with hyperglycemia Diabetes mellitus oysterman insulin use: without intermediate use Diabetes mellitus type: type 2 Qualified Code(s): E11.65 - Type 2 diabetes mellitus with hyperglycemia Plan: Decrease the amount of carbohydrates such as pasta, bread, rice, and potatoes and limit the amount of sweets. Although fruits are generally healthy they should be eaten in moderation as they are still high in sugar. Hemoglobin A1c goal of less than 7%. (5) Migraines: Code(s): G43.909 - Migraine, unspecified, not intractable, without status migrainosus Category: Medical Qualifiers: Intractability: not intractable Migraine type: unspecified Status migrainosus presence: without status migrainosus Qualified Code(s): G43.909 - Migraine, unspecified, not intractable, without status migrainosus Plan: Continue on sumatriptan as needed. We will start amitriptyline daily for migraine maintenance as well as sleep. (6) Annual physical exam: Code(s): Z00.00 - Encounter for general adult medical examination without abnormal findings Category: Medical Plan: Patient is not up-to-date with all recommended routine screenings and vaccinations for his age. Referrals were placed at his last visit and advised patient to follow up on these referrals. Blood work reviewed and updated. Referred to optometry for yearly eye exams as well. (7) Low back pain: Code(s): M54.50 - Low back pain, unspecified Category: Medical Plan: Patient has chronic low back pain status post lumbar fusion L4-L5. Ordered for updated lumbar spine x-ray and can consider referral to pain management or orthopedics. (8) Hypersomnolence: Code(s): G47.10 - Hypersomnia, unspecified Category: Medical Plan: Ordered for home sleep study for evaluation of obstructive sleep apnea. Plan This note was constructed using voice recognition software. While every effort has been made to ensure accuracy and refractory worker, still areas may have been included sometimes these areas may affect the content or meeting of the given symptoms. Total time spent caring for the patient today was 30 minutes. This includes time spent before the visit reviewing the chart, time spent during the visit, and time spent after the visit and documentation. Orders: Orders RT home sleep study Today G47.10 - Hypersomnia, unspecified XR lumbar spine 2-3V Today M54.50 - Low back pain, unspecified Referrals Neurology Referral G43.909 - Migraine, unspecified, not intractable, without status migrainosus Optometry Referral G43.909 - Migraine, unspecified, not intractable, without status migrainosus, Z00.00 - Encounter for general adult medical examination without abnormal findings Medications: New cholecalciferol (vitamin D3) 25 mcg PO DAILY 90 caps 3RF Refilled sumatriptan succinate take 1 tab at onset of headache; if no relief may repeat 1 tab after at least 2 hrs; max = 4 tabs/24 hr PO 20 tabs 2RF
== END 2024-02-02 12:06 | disposition home or self-care (01) ==
LOC: HO.HMCH 11:30
DX: Z00.00 Encounter for general adult medical examination without abnormal findings (principal); K21.9 Gastro-esophageal reflux disease without esophagitis; E11.65 Type 2 diabetes mellitus with hyperglycemia; F41.9 Anxiety disorder, unspecified; Z72.0 Tobacco use; G43.909 Migraine, unspecified, not intractable, without status migrainosus; M54.50 Low back pain, unspecified; G47.10 Hypersomnia, unspecified

== ENCOUNTER → 2024-02-02 11:29 | Outpatient (BNVA) | payer MEDICARE, SELFPAY | DX: Z00.01 Encounter for general adult medical examination with abnormal findings (principal); K21.9 Gastro-esophageal reflux disease without esophagitis; F41.9 Anxiety disorder, unspecified; E11.65 Type 2 diabetes mellitus with hyperglycemia; G43.909 Migraine, unspecified, not intractable, without status migrainosus; M54.50 Low back pain, unspecified; G47.10 Hypersomnia, unspecified; Z72.0 Tobacco use | CPT/HCPCS: 96127; 99212; 99396 ==

== ENCOUNTER → 2024-04-06 10:58 | Outpatient (REF) | payer MEDICARE, MEDICAID, SELFPAY | LOC: HO.SL 10:58 | DX: G47.10 Hypersomnia, unspecified (principal) | CPT/HCPCS: 95806 ==

== ENCOUNTER 2024-04-19 13:54 | Outpatient (AMB) | payer MEDICARE, SELFPAY ==
--- NOTE | 2024-04-19 14:16 | A.OFFVIS_ITS ---
Vital Signs 04/19/24 14:18 Height 6 ft 2 in Weight 194 lb 4 oz BMI 24.9 BP 130/70 Blood Pressure Location Lt brachial Position Sitting Pulse 103 H Pulse Source Pulse Oximeter Pulse Oximetry (%) 97 Oxygen Delivery Method Room Air Intake Visit Reasons: 04/14LVM+Let Urgent INP-ELVIN Intake Note: Patient presents for a new patient evaluation for ELVIN. Sales Project Manager Required: No Accompanied by: Spouse Allergies morphine [MORPHINE] Allergy (Unknown, Verified 04/19/24 14:17) RASH Medication List - Last Reconciled 04/19/24 by Willi Lacy PA-C amitriptyline 10 mg PO BEDTIME bupropion HCl SR (Wellbutrin SR) 100 mg PO BEDTIME MDD 100mg cholecalciferol (vitamin D3) 25 mcg PO DAILY omeprazole 20 mg PO DAILY sumatriptan succinate take 1 tab at onset of headache; if no relief may repeat 1 tab after at least 2 hrs; max = 4 tabs/24 hr PO HPI Comments Details: 54 year old male presents for a f/u of Sleep Study and Migraines. Home Sleep Study Mar 2024: Very Severe ELVIN, with AHI 82. /O2 desats at 87 He sleeps one hour or two and wakes up in several times due to insomnia due to stress. He naps through the day, due to fatigue. 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 He smokes a pack a day of cigarettes, due to stress/boredom and one joint of MJ recreationally. He does have some hobbies, fishing, hunting but hurt his back in 2006, picking up 35 gallons of detergent, while working at his old job, L4/L5 disc, had surgery K- disfusion, and now degenerative spine disorder, so he has not done much since. He has migraines daily nonstop, he wakes up with migraines, orbital pressure, sharp electrical, nerve pain, it pulls the ear r. sided then full blown to the entire ethmoid sinuses, L. and R. side. He has auras with tunnel vision, spots and shaky vision, nystagmus, nausea, dizziness, and vomiting. He takes the Amitriptyline 10mg. He tried Tylenol, Excedrin, Alleve, nothing really helps to completely abort the migraines. He had a CTscan, May 2021. May 2021 CT Scan: FINDINGS: There is no evidence of acute intracranial hemorrhage or territorial infarction. No abnormal mass effect or midline shift is seen. Barrera to white matter differentiation is well preserved. No extra-axial fluid collections are identified. 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 The ventricles are normal in size. There is no abnormal attenuation within the brain parenchyma. The osseous structures and soft tissues are normal. The mastoid air cells are well aerated. There is mild mucosal thickening in the ethmoid sinus air cells. [facility] Surgical History History of lumbar fusion S/P ACL repair S/P nasal surgery Family History Maternal Grandmother Renal cancer Social History Housing: House Patient Tobacco Use Status: Current everyday Tobacco user Tobacco use type: Cigarette Cigarette Packs Per Day: 1 Years Smoked: 30 e-Cigarette/Vaping Use: Never Used service: No Current occupational status: unemployed Cognitive needs: No Hearing needs: No Vision needs: No Review of Systems Const All systems reviewed & are unremarkable except as noted in HPI and below Physical Exam Vital Signs: Last Vital Signs Pulse 103 H 04/19/24 14:18 BP 130/70 04/19/24 14:18 Pulse Ox 97 04/19/24 14:18 Oxygen Delivery Method Room Air 04/19/24 14:18 BMI result Body Mass Index 24.9 Const General: cooperative, no acute distress and tired appearing Nutritional Appearance: average body habitus and thin Orientation/consciousness: patient oriented x3 HEENT Face and sinus: Yes normal facial exam and Yes face symmetric Eyes Pupils: Equal, round and reactive pupils present Resp Effort & Inspection: normal respiratory effort and able to speak in complete sentences Neuro General: patient oriented x3 and moves all extremities Cranial nerves: Yes CN's II-XII intact bilaterally, Yes Facial sensation intact/muscles of mastication intact, Yes Equal, round and reactive pupils present, Yes Normal accommodation reflex present, Yes Bilaterally intact EOM present, Yes Nystagmus not present, Yes Normal facial strength present, Yes Ability to bilaterally rotate head present (Pain with Rotation to the L>R) and Yes Ability to bilaterally elevate shoulders present Cognition (Neuro): normal cognition Gait exam (Neuro): Normal gait present Motor exam (neuro): 5/5 motor strength present throughout, Pronator motor function not present, Normal motor muscle tone present throughout and Motor abnormalites present (Twitching ) tics and other (Right Eye Twitch) Deep tendon reflexes (DTR's): Right triceps reflex intensity grade: 1+, Left triceps reflex intensity grade: 1+, Rt Biceps (C5, C6): 1+, Left biceps reflex intensity grade: 1+, Right brachioradialis reflex intensity grade: 1+, Left brachioradialis reflex intensity grade: 1+, Right patellar reflex intensity grade: 1+ and Left patellar reflex intensity grade: 1+ Psych Appearance: grossly normal Mental Status: mental status grossly normal Speech and movement: Normal speech and movement present Affect: Anxious affect present Attitude: cooperative Thought process: Normal thought process present Thought content: Normal thought content present Insight: Good insight present (Psych) Judgement: Good judgement present (Psych) Results Reviewed Results Reviewed: CT scan May [address] Scan: FINDINGS: There is no evidence of acute intracranial hemorrhage or territorial infarction. No abnormal mass effect or midline shift is seen. Barrera to white matter differentiation is well preserved. No extra-axial fluid collections are identified. 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 Assessment & Plan Assessment & Plan (1) Tobacco abuse: Code(s): Z72.0 - Tobacco use Category: Medical (2) Migraines: Code(s): G43.909 - Migraine, unspecified, not intractable, without status migrainosus Category: Medical Qualifiers: Migraine type: unspecified Status migrainosus presence: without status migrainosus Intractability: not intractable Qualified Code(s): G43.909 - Migraine, unspecified, not intractable, without status migrainosus (3) Obstructive sleep apnea: Code(s): G47.33 - Obstructive sleep apnea (adult) (pediatric) Category: Medical (4) Hypersomnolence: Code(s): G47.10 - Hypersomnia, unspecified Category: Medical (5) Excessive daytime sleepiness: Code(s): G47.19 - Other hypersomnia Category: Medical Plan -Excessive Daytime Fatigue: - [facility] - CPAP use daily >4 hours compliance as patient has very severe ELVIN, no hypoxemia, Sleep Hygiene: Maintain a regular bedtime, no devices in bed. Cool, dark environment, red light therapy may be helpful. - Magnesium 400mg daily at bedtime, Thiamine 200mg PO at bedtime. -Smoking Cessation: Buproprion 100mg SR -Migraines : Amytriptyline 10mg, Migraine merritt Will Consider Sumatriptan increase at next visit if Migraines have not improved F/U in 3 months after daily use of CPAP machine Medications: New magnesium oxide 400 mg PO DAILY 30 tabs 0RF G43.909 - Migraine, unspecified, not intractable, without status migrainosus, G47.33 - Obstructive sleep apnea (adult) (pediatric) bupropion HCl SR (Wellbutrin SR) Take one tablet daily at bedtime. 100 mg PO BEDTIME 30 tabs 0RF smoking cessation MDD 100mg Z72.0 - Tobacco use pyridoxine (vitamin B6) 250 mg PO DAILY 30 tabs 0RF G43.909 - Migraine, unspecified, not intractable, without status migrainosus, G47.33 - Obstructive sleep apnea (adult) (pediatric) Coding Level of Care Code New Pt Level 4 (10167) Diagnoses Tobacco abuse Z72.0 Migraine without status migrainosus, not intractable, unspecified migraine type G43.909 Migraine type: unspecified Status migrainosus presence: without status migrainosus Intractability: not intractable Obstructive sleep apnea G47.33 Hypersomnolence G47.10 Excessive daytime sleepiness G47.19
[2024-04-19 14:18] VITALS: BP 130/70; PULSE 103; O2SAT 97; BMI 24.9
== END 2024-04-19 15:09 | disposition home or self-care (01) ==
PROVIDERS: Visit Provider Physician Assistant Medical
DX: Z72.0 Tobacco use (principal); G43.909 Migraine, unspecified, not intractable, without status migrainosus; G47.33 Obstructive sleep apnea (adult) (pediatric); G47.10 Hypersomnia, unspecified; G47.19 Other hypersomnia
CPT/HCPCS: 99204

== ENCOUNTER → 2024-04-19 13:54 | Outpatient (BNVA) | payer MEDICARE, SELFPAY | PROVIDERS: Visit Provider Physician Assistant Medical | DX: G47.33 Obstructive sleep apnea (adult) (pediatric) (principal); G43.909 Migraine, unspecified, not intractable, without status migrainosus; G47.10 Hypersomnia, unspecified; G47.19 Other hypersomnia; F17.210 Nicotine dependence, cigarettes, uncomplicated; Z99.89 Dependence on other enabling machines and devices | CPT/HCPCS: 99202 ==

== ENCOUNTER → 2024-05-04 10:51 | Outpatient (BNVA) | payer MEDICARE, SELFPAY | DX: E11.65 Type 2 diabetes mellitus with hyperglycemia (principal); M54.6 Pain in thoracic spine; M54.50 Low back pain, unspecified; G47.33 Obstructive sleep apnea (adult) (pediatric); K21.9 Gastro-esophageal reflux disease without esophagitis; G43.909 Migraine, unspecified, not intractable, without status migrainosus | CPT/HCPCS: 83036; 99212 ==

== ENCOUNTER 2024-05-24 13:06 | Outpatient (REF) | payer MEDICARE, SELFPAY ==
--- NOTE | ~2024-05-24 | XR_ITS ---
EXAMINATION: XR LUMBOSACRAL SPINE CLINICAL INFORMATION: M54.6 - Pain in thoracic spine COMPARISON: None available. TECHNIQUE: Three views of the lumbosacral spine. FINDINGS: L2 level marginal osteophyte formation and syndesmophyte formation, endplate sclerosis, decreased intervertebral disc height and vacuum phenomenon with incomplete ankylosis more conspicuous at L3-4. Status post intervertebral body disc spacer placement at L4-5 and L5-S1. There is a sacralization labeled S1. No acute cortical disruption. Loss of the lumbar lordosis. 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 No acute fracture. Electronically signed by: Nitin Rondon MD 05/24/2024 02:20 PM JAIRO LEE
--- NOTE | ~2024-05-24 | XR_ITS ---
EXAMINATION: XR THORACIC SPINE CLINICAL INFORMATION: M54.50 - Low back pain, unspecified COMPARISON: None available. TECHNIQUE: 3 views of the thoracic spine were obtained. FINDINGS: There is no significant scoliosis. There is mild straightening of the normal kyphosis. There is no fracture, compression deformity, subluxation, or suspicious bone lesion. Normal alignment. Disc spaces demonstrate minimal degenerative disc change in the lower thoracic region. Facets are normally aligned. No significant facet arthritis. Incidentally noted on the swimmer's view, there are bulky ventral disc osteophytes present spanning C5-C7 with preservation of disc space, findings suggesting possible early DISH. The paraspinal soft tissues appear normal. The imaged heart, lungs, mediastinal contours, and soft tissues appear normal. XR/XR thoracic spine 2V IMPRESSION: 1. No acute thoracic spine findings. Minimal degenerative changes. 2. See above for incidental findings. Electronically signed by: Sander Jj MD 05/24/2024 02:24 PM [facility]
== END 2024-05-24 13:07 | disposition home or self-care (01) ==
LOC: HO.XRAY 13:06
DX: M54.6 Pain in thoracic spine (principal); M54.50 Low back pain, unspecified
CPT/HCPCS: 72070; 72100

== ENCOUNTER → 2024-05-24 13:09 | Outpatient (BNV) | payer MEDICARE, SELFPAY | PROVIDERS: Visit Provider Radiology Diagnostic Radiology | DX: M47.895 Other spondylosis, thoracolumbar region (principal); M54.6 Pain in thoracic spine | CPT/HCPCS: 72070; 72100 ==

== ENCOUNTER 2024-07-20 14:22 | Outpatient (AMB) | payer MEDICARE, SELFPAY ==
[2024-07-20 14:34] VITALS: BP 116/72; PULSE 84; O2SAT 96; BMI 25.9
--- NOTE | 2024-07-20 14:34 | A.OFFVIS_ITS ---
Vital Signs 07/20/24 14:34 Height 6 ft 2 in Weight 201 lb 6 oz BMI 25.9 BP 116/72 Blood Pressure Location Rt brachial Position Sitting Pulse 84 Pulse Source Pulse Oximeter Pulse Oximetry (%) 96 Oxygen Delivery Method Room Air Intake Visit Reasons: follow up ELVIN Intake Note: Patient presents follow up ELVIN/Migraine medication. Accompanied by: Spouse Allergies morphine [MORPHINE] Allergy (Unknown, Verified 07/20/24 14:36) RASH HPI Comments Details: 54 year old male presents for a f/u of ELVIN and Migraines. Home Sleep Study Mar 2024: Very Severe ELVIN with AHI 82 and O2 desats at 87, start cpap [id number] edna. He goes to bed at 11pm sleeps 4hours and gets up every 2 hours for the bathroom, gets up at 3:30 am, and wakes up in several times due to insomnia due to stress. He naps through the day, due to fatigue. 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 He smokes a pack a day of cigarettes, due to stress/boredom and one joint of MJ recreationally. He does have some hobbies, fishing, hunting but hurt his back in 2006, picking up 35 gallons of detergent, while working at his old job, L4/L5 disc, had surgery K- disfusion, and now degenerative spine disorder, so he has not done much since. He has migraines, however improved to 3-4 a month now with amitryptyline 10mg PO at night, he wakes up with migraines, orbital pressure, sharp electrical, it pulls the ear r. sided then full blown to the entire ethmoid sinuses, L. and R. side. He has auras with tunnel vision, spots and shaky vision, nystagmus, nausea, dizziness, and vomiting. He takes the Amitriptyline 10mg. He tried Tylenol, Excedrin, Alleve, nothing really helps to completely abort the migraines. Will f/u with compliance once he picks up his CPAP machine from [facility], patient education was provided today due to fh or dementia, the importance of using his CPAP daily and compliance. [facility] Surgical History History of lumbar fusion S/P ACL repair S/P nasal surgery Family History Maternal Grandmother Renal cancer Social History Housing: House Patient Tobacco Use Status: Current everyday Tobacco user Tobacco use type: Cigarette Cigarette Packs Per Day: 0.5 Cigarettes Per Day: 10 Years Smoked: 30 e-Cigarette/Vaping Use: Never Used Second Hand Smoke Exposure: Yes service: No Current occupational status: unemployed Cognitive needs: No Hearing needs: No Vision needs: No Physical Exam Vital Signs: Last Vital Signs Pulse 84 07/20/24 14:34 BP 116/72 07/20/24 14:34 Pulse Ox 96 07/20/24 14:34 Oxygen Delivery Method Room Air 07/20/24 14:34 BMI result Body Mass Index 25.9 Const General: cooperative, no acute distress and tired appearing Nutritional Appearance: average body habitus and thin Orientation/consciousness: patient oriented x3 HEENT Face and sinus: Yes normal facial exam and Yes face symmetric Eyes Pupils: Equal, round and reactive pupils present Resp Effort & Inspection: normal respiratory effort and able to speak in complete sentences Neuro General: patient oriented x3 and moves all extremities Cranial nerves: Yes CN's II-XII intact bilaterally, Yes Facial sensation intact/muscles of mastication intact, Yes Equal, round and reactive pupils present, Yes Normal accommodation reflex present, Yes Bilaterally intact EOM present, Yes Nystagmus not present, Yes Normal facial strength present, Yes Ability to bilaterally rotate head present (Pain with Rotation to the L>R) and Yes Ability to bilaterally elevate shoulders present Cognition (Neuro): normal cognition Gait exam (Neuro): Normal gait present Motor exam (neuro): 5/5 motor strength present throughout, Pronator motor function not present, Normal motor muscle tone present throughout and Motor abnormalites present (Twitching ) tics and other (Right Eye Twitch) Deep tendon reflexes (DTR's): Right triceps reflex intensity grade: 1+, Left triceps reflex intensity grade: 1+, Rt Biceps (C5, C6): 1+, Left biceps reflex intensity grade: 1+, Right brachioradialis reflex intensity grade: 1+, Left brachioradialis reflex intensity grade: 1+, Right patellar reflex intensity grade: 1+ and Left patellar reflex intensity grade: 1+ Psych Appearance: grossly normal Mental Status: mental status grossly normal Speech and movement: Normal speech and movement present Affect: Anxious affect present Attitude: cooperative Thought process: Normal thought process present Thought content: Normal thought content present Insight: Good insight present (Psych) Judgement: Good judgement present (Psych) Assessment & Plan Assessment & Plan (1) Tobacco abuse: Code(s): Z72.0 - Tobacco use Category: Medical (2) Migraines: Code(s): G43.909 - Migraine, unspecified, not intractable, without status migrainosus Category: Medical Qualifiers: Migraine type: unspecified Status migrainosus presence: without status migrainosus Intractability: not intractable Qualified Code(s): G43.909 - Migraine, unspecified, not intractable, without status migrainosus (3) Obstructive sleep apnea: Code(s): G47.33 - Obstructive sleep apnea (adult) (pediatric) Category: Medical (4) Hypersomnolence: Code(s): G47.10 - Hypersomnia, unspecified Category: Medical (5) Excessive daytime sleepiness: Code(s): G47.19 - Other hypersomnia Category: Medical Plan Excessive Daytime Fatigue and cognitive decline will evaluate with MMSE at next visit +fh of dementia. CPAP use daily >4 hours compliance as patient has very severe ELVIN, no hypoxemia, Sleep Hygiene reviewed, Maintain a regular bedtime, no devices in bed. Cool, dark environment, red light therapy may be helpful. RLS symptoms Magnesium 400mg daily at bedtime, Thiamine 200mg PO at bedtime Smoking Cessation offerred today, continue Buproprion 100mg SR Migraines : Amytriptyline 10mg, Migraine merritt to help track migraine. Continue Sumatriptan 100mg po daily may use one tablet at onset of migraines and one more if they don't abort. Do not exceed more than 2 tablets in a 24 hour perior. F/U in 3 months after he picks up CPAP machine from [facility], Rx is sent today. Medications: Refilled pyridoxine (vitamin B6) 250 mg PO DAILY 30 tabs 0RF G43.909 - Migraine, unspecified, not intractable, without status migrainosus, G47.33 - Obstructive sleep apnea (adult) (pediatric) magnesium oxide 400 mg PO DAILY 90 days 90 tabs 1RF G43.909 - Migraine, unspecified, not intractable, without status migrainosus, G47.33 - Obstructive sleep apnea (adult) (pediatric) sumatriptan succinate take 1 tab at onset of headache; if no relief may repeat 1 tab after at least 2 hrs; max = 4 tabs/24 hr PO 20 tabs 2RF Patient Instructions: Sleep Hygiene provided: set a scheduled bedtime and wake time to help regulate the circadian rhythm and balance the release of pituitary hormones. Sleep in a dark room, temperatures below 68 degrees, and no devices n bed. Limit caffeinated products 6 hours prior to bed, and limit fluids 2-4 hours prior to bed. Gentle night yoga, diffusing essential oils, and playing soft music can be relaxing. RLS will monitor Migraine, r/f Sumatriptan 100mg PO at onset of headache and my repeat one more tablet not to exceed 200mg within 24 hours. Continue Amitriptyline daily at bedtime 10-mg PO. May increase Buproprion at next visti to 250mg PO so it is not subtherapeutic. Coding Level of Care Code Est Pt Level 4 (79742) Complex EM visit Add On G2211 Diagnoses Tobacco abuse Z72.0 Migraine without status migrainosus, not intractable, unspecified migraine type G43.909 Migraine type: unspecified Status migrainosus presence: without status migrainosus Intractability: not intractable Obstructive sleep apnea G47.33 Hypersomnolence G47.10 Excessive daytime sleepiness G47.19 Time Spent (min) 35 Comment slow to improve
== END 2024-07-20 15:20 | disposition home or self-care (01) ==
LOC: HO.HSMS 14:22
PROVIDERS: Visit Provider Physician Assistant Medical
DX: Z72.0 Tobacco use (principal); G43.909 Migraine, unspecified, not intractable, without status migrainosus; G47.33 Obstructive sleep apnea (adult) (pediatric); G47.10 Hypersomnia, unspecified; G47.19 Other hypersomnia
CPT/HCPCS: 99214; G2211

== ENCOUNTER → 2024-07-20 14:22 | Outpatient (BNVA) | payer MEDICARE, SELFPAY | PROVIDERS: Visit Provider Physician Assistant Medical | DX: G43.909 Migraine, unspecified, not intractable, without status migrainosus (principal); G47.33 Obstructive sleep apnea (adult) (pediatric); G47.10 Hypersomnia, unspecified; G47.19 Other hypersomnia; Z72.0 Tobacco use | CPT/HCPCS: 99212 ==

== ENCOUNTER 2024-07-22 15:25 | Emergency (ER) | payer MEDICARE, SELFPAY ==
[2024-07-22 15:43] VITALS: BP 156/67; PULSE 104; RESP 16; TEMP 37.3; O2SAT 99; BMI 24.5
--- NOTE | 2024-07-22 15:43 | ED.LOWEXIN ---
HPI - Extremity Injury (Lower) General Chief Complaint: Extremity Injury, Lower Stated Complaint: black toe Related Data Previous Rx's ?Medication ?Instructions ?Recorded omeprazole 20 mg capsule,delayed 20 mg PO DAILY #90 caps 01/27/24 release cholecalciferol (vitamin D3) 25 25 mcg PO DAILY #90 caps 02/02/24 mcg (1,000 unit) capsule amitriptyline 10 mg tablet 10 mg PO BEDTIME #90 tabs 05/03/24 bupropion HCl 100 mg tablet,12 hr 100 mg PO BEDTIME #90 tabs 05/13/24 sustained-release magnesium oxide 400 mg (241.3 mg 400 mg PO DAILY 90 days #90 tabs 07/20/24 magnesium) tablet pyridoxine (vitamin B6) 250 mg 250 mg PO DAILY #30 tabs 07/20/24 tablet sumatriptan succinate 25 mg tablet See Rx Instructions PO .COMPLEX 07/20/24 #20 tabs Allergies Allergy/AdvReac Type Severity Reaction Status Date / Time morphine [MORPHINE] Allergy Unknown RASH Verified 07/22/24 15:48 [facility] Past Medical History Surgical History History of lumbar fusion S/P ACL repair S/P nasal surgery Family History Family History Maternal Grandmother Renal cancer Social History Social History Housing: House Patient Tobacco Use Status: Current everyday Tobacco user Tobacco use type: Cigarette Cigarette Packs Per Day: 0.5 Cigarettes Per Day: 10 Years Smoked: 30 e-Cigarette/Vaping Use: Never Used Second Hand Smoke Exposure: Yes Advance Directives: No Advance Directives Information Provided: No Do you have a plan to hurt others: No Plan service: No Current occupational status: unemployed Cognitive needs: No Hearing needs: No Vision needs: No Physical Exam Vital Signs: Vital Signs: Last Vital Signs Temp 99.1 F 07/22/24 15:43 Pulse 104 H 07/22/24 15:43 Resp 16 07/22/24 15:43 BP 156/67 H 07/22/24 15:43 Pulse Ox 99 07/22/24 15:43 O2 Del Method Room Air 07/22/24 15:43 BMI result Body Mass Index 24.5 Course Course Course Narrative: This is a Rapid Medical Exam performed in triage by Lashaun Quarles PA-C. Full HPI, ROS and PE to be performed by primary ED provider. 54 yo M w/PMHx DM (diet controlled), anxiety, migraines, GERD, ELVIN presenting to the ED c/o black toes since Friday. denies injury PE: +Left 2-3rd toe nail bed with dark discoloration, ?fungus POC 158 in triage Plan: labs, XR Medical Decision Making Lab Data 07/22/24 16:35 07/22/24 16:35 Labs: Lab Results 07/22/24 07/22/24 Range/Units 15:46 16:35 WBC 9.1 (4.8-10.8) X10*3/uL RBC 4.89 (4.60-5.80) X10*6/uL Hgb 14.1 (14.0-18.0) g/dl Hct 41.8 L (42.0-52.0) % MCV 85.5 (80.0-98.0) fL MCH 28.8 (27.0-33.0) pg MCHC 33.7 (31.0-36.0) g/dl RDW 13.2 (11.0-16.0) % Plt Count 201 (160-400) X10*3/uL MPV 10.1 (9.4-12.4) fL Immature Gran % (Auto) 0.4 (0.0-0.4) % Neut % (Auto) 71.2 (45-73) % Lymph % (Auto) 20.9 (20-40) % [place] % (Auto) 6.5 (2-11) % Eos % (Auto) 0.8 (0-4) % Baso % (Auto) 0.2 (0-2) % Lymph # (Auto) 1.9 (1.2-4.9) X10*3/uL [place] # (Auto) 0.6 (0.1-1.2) X10*3/uL Eos # (Auto) 0.1 (0.0-0.4) X10*3/uL Baso # (Auto) 0.0 (0.0-0.2) X10*3/uL Abs Immat Gran (auto) 0.04 H (0.00-0.03) X10*3/uL Absolute Neuts (auto) 6.5 (2.0-8.3) x10*3/uL Absolute Nucleated RBC 0.000 (0.0-0.012) X10*3/uL Nucleated RBC % (auto) 0.0 (0.0-0.2) /100WBC ESR 2 (0-15) MM/HR Sodium 138 (135-145) mmol/L Potassium 5.1 (3.3-5.1) mmol/L Chloride 102 (96-108) mmol/L Carbon Dioxide 30 H (22-29) mmol/L Anion Gap 11 L (12-20) BUN 16 (9-16) mg/dL Creatinine 1.18 (0.5-1.4) mg/dL Estim Creat Clear Calc 85.1 Estimated GFR > 60 POC Glucose 158 H (60-115) mg/dL Random Glucose 137 H (60-115) mg/dL Calcium 9.6 (8.4-10.2) mg/dL Magnesium 2.4 (1.6-2.6) mg/dL Total Bilirubin 0.4 (0.0-1.0) mg/dL Direct Bilirubin 0.1 (0.0-0.5) mg/dL AST 15 (5-37) U/L ALT 20 (0-40) U/L Alkaline Phosphatase 84 (39-117) U/L C-Reactive Protein 0.62 H (< or = 0.50) mg/dL Total Protein 6.6 (6.5-8.0) g/dL Albumin 4.2 (3.5-5.0) g/dL Discharge Plan Discharge Clinical Impression: Black toe Patient Disposition: Left W/O Completing Treatment Prescriptions: No Action omeprazole 20 mg capsule,delayed release(DR/EC) 20 mg PO DAILY Qty: 90 1RF amitriptyline 10 mg tablet 10 mg PO BEDTIME Qty: 90 0RF bupropion HCl 100 mg tablet sustained-release 12 hr 100 mg PO BEDTIME Qty: 90 3RF cholecalciferol (vitamin D3) 25 mcg (1,000 unit) capsule 25 mcg PO DAILY Qty: 90 3RF sumatriptan succinate 25 mg tablet See Rx Instructions PO .COMPLEX Qty: 20 2RF Rx Instructions: take 1 tab at onset of headache; if no relief may repeat 1 tab after at least 2 hrs; max = 4 tabs/24 hr PO pyridoxine (vitamin B6) 250 mg tablet 250 mg PO DAILY Qty: 30 0RF magnesium oxide 400 mg (241.3 mg magnesium) tablet 400 mg PO DAILY 90 Days Qty: 90 1RF Discharge Date/Time: 07/22/24 21:32
[2024-07-22 15:53] LABS: Glucose, Whole Blood 158 mg/dL (60-115)
[2024-07-22 16:44] LABS: MANUAL DIFF FLAG NO
[2024-07-22 16:48] LABS: Basophils Percent Auto 0.2 % (0-2); Eosinophils Absolute Auto 0.1 X10*3/uL (0.0-0.4); Eosinophils Percent Auto 0.8 % (0-4); Hematocrit 41.8 % (42.0-52.0); Hemoglobin 14.1 g/dl (14.0-18.0); Imm Gran Abs Auto 0.04 X10*3/uL (0.00-0.03); Imm Gran Pct Auto 0.4 % (0.0-0.4); Lymphocytes Absolute Auto 1.9 X10*3/uL (1.2-4.9); Lymphocytes Percent Auto 20.9 % (20-40); Mean Corpuscular HGB Conc 33.7 g/dl (31.0-36.0); Mean Corpuscular Hemoglobin 28.8 pg (27.0-33.0); Mean Corpuscular Volume 85.5 fL (80.0-98.0); Mean Platelet Volume 10.1 fL (9.4-12.4); Monocytes Absolute Auto 0.6 X10*3/uL (0.1-1.2); Monocytes Percent Auto 6.5 % (2-11); Neutrophils Absolute Auto 6.5 x10*3/uL (2.0-8.3); Neutrophils Percent Auto 71.2 % (45-73); Platelet Count 201 X10*3/uL (160-400); Red Blood Count 4.89 X10*6/uL (4.60-5.80); Red Cell Distribution Width 13.2 % (11.0-16.0); White Blood Count 9.1 X10*3/uL (4.8-10.8)
[2024-07-22 17:08] LABS: Alanine Aminotransferase 20 U/L (0-40); Albumin Level 4.2 g/dL (3.5-5.0); Alkaline Phosphatase 84 U/L (39-117); Anion Gap 11 (12-20); Aspartate Amino Transferase 15 U/L (5-37); Bilirubin Direct 0.1 mg/dL (0.0-0.5); Bilirubin Total 0.4 mg/dL (0.0-1.0); Blood Urea Nitrogen 16 mg/dL (9-16); C Reactive Protein 0.62 mg/dL (< or = 0.50); Calcium 9.6 mg/dL (8.4-10.2); Carbon Dioxide 30 mmol/L (22-29); Chloride 102 mmol/L (96-108); Creatinine Clr Calc Pharmacy 85.1; Estimated Glomerular Filt Rate > 60; Glucose Random 137 mg/dL (60-115); Magnesium 2.4 mg/dL (1.6-2.6); Potassium 5.1 mmol/L (3.3-5.1); Sodium 138 mmol/L (135-145); Total Protein 6.6 g/dL (6.5-8.0)
[2024-07-22 18:10] LABS: Erythrocyte Sedimentation Rate 2 MM/HR (0-15)
== END 2024-07-22 21:32 | disposition left against medical advice (07) ==
PROVIDERS: Physician Assistant; Emergency Provider Emergency Medicine
DX: L60.8 Other nail disorders (principal); E11.9 Type 2 diabetes mellitus without complications
CPT/HCPCS: 36415; 80048; 80076; 82947; 83735; 85025; 85652; 86140; 99281; 99283

== ENCOUNTER → 2024-08-02 11:31 | Outpatient (BNVA) | payer MEDICARE, SELFPAY | DX: Z13.89 Encounter for screening for other disorder (principal) ==

== ENCOUNTER 2024-11-02 13:23 | Outpatient (AMB) | payer MEDICARE, SELFPAY ==
[2024-11-02 13:30] VITALS: BP 110/68; PULSE 77; O2SAT 97; BMI 28.4
--- NOTE | 2024-11-02 13:30 | A.OFFVIS_ITS ---
Vital Signs 11/02/24 13:30 Height 6 ft 2 in Weight 221 lb BMI 28.4 BP 110/68 Blood Pressure Location Lt brachial Position Sitting Pulse 77 Pulse Source Pulse Oximeter Pulse Oximetry (%) 97 Oxygen Delivery Method Room Air Intake Visit Reasons: 3 month follow up Intake Note: Patient presents follow up Migraine/ELVIN. Patient started CPAP 10/11(used for first night 9min nothing since). Patient states migraines have been worse. Patient gets about 20/30 days. Medications do not help. Patient states not using machine do to pressure were choking him. Allergies morphine (MORPHINE) Allergy (Unknown, Verified 11/02/24 13:33) RASH HPI Comments Details: 54 year old male presents for a f/u of ELVIN and Migraines. Mar 2024 HST c/w AHI of 82 and O2 desats to 87%, he has very severe elvin, start cpap [id number] edna and f/u for compliance. Pressures are too high for him and needs to be titrated he feels as if he is smothered. He goes to bed at 11pm and sleeps about 4hours a night, he gets up every hour for the bathroom. He is having a difficult time the cpap mask, he wakes up several times due to panic attacks as he feels as though he is being suffocated by the pressures on the cpap. He sleep through the day due to migraine pain, he is having about 20 headaches/migraines per month, starts at the ethmoid sinus and radiates bilaterally to the frontal area. He has been keeping track of them and notices his vision gets blurry, with spots. Most days he wakes up with headaches that turn into migraines, orbital pressure, sharp electrical, it pulls the ear r. sided then full blown to the entire ethmoid sinuses, L.> and R. side. Vision is blurry A1c is elevated, random glucose is elevated. He has auras with tunnel vision, spots and shaky vision, nystagmus, nausea, dizziness, and vomiting. Denies balance and vertigo. He smokes about 12/cigarettes, however increased beer intake about 18/ week now and one joint of MJ recreationally. He has an old spinal injury L3/L4 bulging disc and crush injury, had surgery K- disfusion, and now degenerative spine disorder. urology issues - frequency, back pain lower part to the shoulder blades spinal injury, L3/L4 discs crush injury. disc bulging RLS symptoms l. foot >r. numbness burning, tingling radiating pain at night, keeps him up. Nocturia, and frequency, denies urgency or hematuria, has back pain lower part radiates to the shoulder blades spinal injury. [facility] Surgical History History of lumbar fusion S/P ACL repair S/P nasal surgery Family History Maternal Grandmother Renal cancer Social History Housing: House Patient Tobacco Use Status: Current everyday Tobacco user Tobacco use type: Cigarette Cigarette Packs Per Day: 0.5 Cigarettes Per Day: 10 Years Smoked: 30 e-Cigarette/Vaping Use: Never Used Second Hand Smoke Exposure: Yes service: No Current occupational status: unemployed Cognitive needs: No Hearing needs: No Vision needs: No Physical Exam Vital Signs: Last Vital Signs Pulse 77 11/02/24 13:30 BP 110/68 11/02/24 13:30 Pulse Ox 97 11/02/24 13:30 Oxygen Delivery Method Room Air 11/02/24 13:30 BMI result Body Mass Index 28.4 Const General: cooperative, no acute distress and tired appearing Nutritional Appearance: average body habitus and thin Orientation/consciousness: patient oriented x3 HEENT Face and sinus: Yes normal facial exam and Yes face symmetric Resp Effort & Inspection: normal respiratory effort and able to speak in complete sentences Neuro Other: somnolence, sweating profusively, intoxicated. General: patient oriented x3 and moves all extremities Cranial nerves: Yes Facial sensation intact/muscles of mastication intact, Yes Normal accommodation reflex present, Yes Bilaterally intact EOM present, Yes Nystagmus not present, Yes Normal facial strength present, Yes Ability to bilaterally rotate head present (Pain with Rotation to the L>R) and Yes Ability to bilaterally elevate shoulders present Gait exam (Neuro): Normal gait present Motor exam (neuro): 5/5 motor strength present throughout, Normal motor muscle tone present throughout and Motor abnormalites present (Twitching ) tics and other (Right Eye Twitch) Coordination: sways with eyes open Psych Appearance: well kempt Mental Status: other (somnolence ) Speech and movement: Slowed movement present (Neuro) Attitude: cooperative Thought process: Impoverished thought process present Thought content: Normal thought content present Insight: Fair insight present (Psych) Judgement: Fair judgement present (Psych) Results Reviewed Results Reviewed: l3/l4 spine IMPRESSION: Multilevel thoracolumbar spondylosis resulting in incomplete ankylosis of the lower lumbar spine. No acute fracture. Assessment & Plan Assessment & Plan (1) Obstructive sleep apnea: Comment: needs titration Code(s): G47.33 - Obstructive sleep apnea (adult) (pediatric) Category: Medical (2) Tobacco abuse: Comment: smoking cessation is offerred. Code(s): Z72.0 - Tobacco use Category: Medical (3) Migraines: Comment: increased amitryptyline to 3omg po at bedtime/ increased sumatriptan Code(s): G43.909 - Migraine, unspecified, not intractable, without status migrainosus Category: Medical Qualifiers: Intractability: not intractable Migraine type: unspecified Status migrainosus presence: without status migrainosus Qualified Code(s): G43.909 - Migraine, unspecified, not intractable, without status migrainosus (4) Hypersomnolence: Code(s): G47.10 - Hypersomnia, unspecified Category: Medical Plan: limit alcohol intake, drinks over 18 beers per night. (5) Excessive daytime sleepiness: Code(s): G47.19 - Other hypersomnia Category: Medical (6) Severe frontal headaches: Comment: A1c is elevated refer to pcp Code(s): R51.9 - Headache, unspecified Category: Medical (7) Excessive daytime and night-time sleepiness: Code(s): G47.19 - Other hypersomnia Category: Medical (8) Frequent urination at night: Comment: urology referral Code(s): R35.1 - Nocturia Category: Medical Plan ELVIN on cpap and feeling suffocated due to pressure will send him for titration study, use cpap daily >4 hours, put the mask on one hour prior to bed and watch tv so you gradually become more acclimated to the mask. Excessive Daytime Fatigue and cognitve decline FH+ dementia will evaluate with MMSE next visit along with CTscan. Sleep Hygiene reviewed, Maintain a regular bedtime, no devices in bed. Cool, dark environment, red light therapy may be helpful. Chrnonic Migraines Amitriptyline 30mg po at bedtime, keep a diary of how many headaches and migraines per month Acute and episodic headaches prevention Sumatriptan 50mg po at onset of headache and may take one more w/in a 24 hour period if headache does not abort. Do not exceed more than 100mg po in 24hour period. Previous trials: Alleve, tylenol, excederin otc. RLS symptoms Continue Magnesium 400mg daily at bedtime, Thiamine 200mg PO at bedtime Labs reviewed with patient, today A1c, elevated, blood sugar elevated, random blood sugar elevated. Referral urology Nocturia with frequency denies hematuria and urgency or stress incontinence. Smoking Cessation offerred today, continue Buproprion 100mg SR. Decrease alcohol intake, declines naltrexone today. F/U in 3 months after titration is completed. Orders: Orders RT PSG in-lab sleep titration Today G47.33 - Obstructive sleep apnea (adult) (pediatric) Magnesium Today G47.19 - Other hypersomnia Hemoglobin A1c Today G47.19 - Other hypersomnia Methylmalonic Acid Today G47.19 - Other hypersomnia, G47.9 - Sleep disorder, unspecified, R53.83 - Other fatigue TSH reflex Free T4 Today G47.19 - Other hypersomnia Vitamin D 25-OH Total Today G47.19 - Other hypersomnia Homocysteine Today G47.19 - Other hypersomnia, G47.9 - Sleep disorder, unspecified, R53.83 - Other fatigue Ferritin Today G47.19 - Other hypersomnia Referrals Urology Referral R35.1 - Nocturia Medications: Changed From sumatriptan succinate take 1 tab at onset of headache; if no relief may repeat 1 tab after at least 2 hrs; max = 4 tabs/24 hr PO 20 tabs 2RF R51.9 - Headache, unspecified To sumatriptan succinate take 1 tab at onset of headache; if no relief may repeat 1 tab after at least 2 hrs; max = 4 tabs/24 hr PO 12 tabs 2RF headaches 1 month MDD 100mg R51.9 - Headache, unspecified From amitriptyline 10 mg PO BEDTIME 90 tabs 0RF G43.909 - Migraine, unspecified, not intractable, without status migrainosus To amitriptyline take one tablet 30mg po daily at bedtime. 30 mg (3 x 10 mg) PO BEDTIME 30 tabs 0RF G43.909 - Migraine, unspecified, not intractable, without status migrainosus Coding Level of Care Code Est Pt Level 4 (14956) Complex EM visit Add On G2211 Diagnoses Obstructive sleep apnea G47.33 Tobacco abuse Z72.0 Migraine without status migrainosus, not intractable, unspecified migraine type G43.909 Intractability: not intractable Migraine type: unspecified Status migrainosus presence: without status migrainosus Hypersomnolence G47.10 Excessive daytime sleepiness G47.19 Severe frontal headaches R51.9 Excessive daytime and night-time sleepiness G47.19 Frequent urination at night R35.1 Time Spent (min) 45
== END 2024-11-02 14:22 | disposition home or self-care (01) ==
LOC: HO.HSMS 13:23
PROVIDERS: Visit Provider Physician Assistant Medical
DX: G47.33 Obstructive sleep apnea (adult) (pediatric) (principal); Z72.0 Tobacco use; G43.909 Migraine, unspecified, not intractable, without status migrainosus; G47.10 Hypersomnia, unspecified; G47.19 Other hypersomnia; R51.9 Headache, unspecified; R35.1 Nocturia
CPT/HCPCS: 99214; G2211

== ENCOUNTER → 2024-11-02 13:23 | Outpatient (BNVA) | payer MEDICARE, SELFPAY | PROVIDERS: Visit Provider Physician Assistant Medical | DX: G47.33 Obstructive sleep apnea (adult) (pediatric) (principal); G47.10 Hypersomnia, unspecified; G43.909 Migraine, unspecified, not intractable, without status migrainosus; G47.19 Other hypersomnia; R51.9 Headache, unspecified; R35.1 Nocturia; F17.210 Nicotine dependence, cigarettes, uncomplicated; Z79.899 Other long term (current) drug therapy | CPT/HCPCS: 99212 ==

== ENCOUNTER 2024-12-08 11:27 | Outpatient (AMB) | payer MEDICARE, SELFPAY ==
[2024-12-08 11:41] VITALS: BP 132/62; PULSE 97; O2SAT 96; BMI 27.9
--- NOTE | 2024-12-08 11:41 | MHC.PC.OV ---
Vital Signs 12/08/24 11:41 Height 6 ft 2 in Weight 217 lb 2 oz BMI 27.9 BP 132/62 Blood Pressure Location Lt brachial Position Sitting Pulse 97 Pulse Oximetry (%) 96 Intake Visit Reasons: 3m f/u reschedule from 12/01 Electrode Cleaner Required: No Accompanied by: Self / Same As Patient Allergies morphine (MORPHINE) Allergy (Unknown, Verified 12/08/24 11:43) RASH Medication List - Last Reconciled 12/08/24 by Marimar Falcon PA-C amitriptyline 30 mg (3 x 10 mg) PO BEDTIME bupropion HCl SR 100 mg PO BEDTIME cholecalciferol (vitamin D3) 25 mcg PO DAILY magnesium oxide 400 mg PO DAILY 90 days omeprazole 20 mg PO DAILY pyridoxine (vitamin B6) (Vitamin B-6) 250 mg PO DAILY 90 days sumatriptan succinate take 1 tab at onset of headache; if no relief may repeat 1 tab after at least 2 hrs; max = 4 tabs/24 hr PO 1 month MDD 100mg Tobacco use date assessed: 05/04/24 Dental Screening Dental Screen Date: 12/08/24 Did you have a dental visit in the last 12 months?: No Did you have a dental problem in the last 6 months where you did not have access to dental care?: No Was dental information given to patient?: Patient declined HPI 3m f/u reschedule from 12/01 HPI Details 54-year-old male with past medical history of diabetes mellitus, migraines last seen 05/2024 coming in for follow up. In review of the notes, patient was seen by Neurology 11/02/2024 sent for titration study for CPAP plan for MMSE and CT scan at next visit. Continued on magnesium and thiamine at bedtime for restless leg and follow up in 3 months. Referral was also placed to Urology for nocturia. Presenting with migraines, diabetes mellitus, and gastroesophageal reflux disease. The patient reports frequent headaches, using sumatriptan every other day without relief. Amitriptyline, magnesium, and thiamine have not been effective. The patient's A1c has increased to 8.9 from the 6s, indicating poor glycemic control. The patient admits to consuming high-sugar foods and beverages. The patient experiences persistent heartburn, particularly in the afternoon and evening, leading to nausea and vomiting. Omeprazole was increased to 40 mg. The patient is scheduled for a titration study for sleep apnea on the of this month. The patient reports waking after four hours of sleep, often due to nocturia. The patient smokes approximately 12 cigarettes per day and has declined nicotine replacement therapy. [facility] Surgical History History of lumbar fusion S/P ACL repair S/P nasal surgery Family History Maternal Grandmother Renal cancer Social History Housing: House Patient Tobacco Use Status: Current everyday Tobacco user Tobacco use type: Cigarette Cigarette Packs Per Day: 0.5 Cigarettes Per Day: 10 Years Smoked: 30 e-Cigarette/Vaping Use: Never Used Second Hand Smoke Exposure: Yes service: No Current occupational status: unemployed Cognitive needs: No Hearing needs: No Vision needs: No Questionnaire PHQ-9 Over the last 2 weeks, how often have you been bothered by any of the following problems? 1. Little interest or pleasure in doing things: more than half the days 2. Feeling down, depressed, or hopeless: not at all 3. Trouble falling or staying asleep, or sleeping too much: nearly every day 4. Feeling tired or having little energy: more than half the days 5. Poor appetite or overeating: not at all 6. Feeling bad about yourself - or that you are a failure or have let yourself or your family down: not at all 7. Trouble concentrating on things, such as reading the newspaper or watching television: not at all 8. Moving or speaking so slowly that other people could have noticed. Or the opposite - being so fidgety or restless that you have been moving around a lot more than usual: not at all 9. Thoughts that you would be better off or of hurting yourself in some way: not at all Total score: 7 Depression Screening Interpretation: Positive Depression Screening Follow-up: Existing condition and In treatment Depression Screening Done: Yes Source: Developed by Drs. Michel Valles, Radha Horton, Jorge Walter and colleagues, with an educational ashley from [employer]. Thrive Questionnaire Date Thrive assessed: 12/08/24 I am a: Patient What is your living situation today?: I have a steady place to live Within the past 12 months, did the food you bought not last and you didn't have the money to get more?: I choose not to answer this question Within the past 12 months, did you worry whether your food would run out before you got money to buy more?: I choose not to answer this question Do you have trouble paying for medicines?: Yes Do you have trouble getting transportation to medical appointments?: No Do you have trouble paying your heating and electricity bill?: Yes Do you have trouble taking care of your child, family member or friend?: No Do you have trouble with day-to-day activities such as bathing, preparing meals, shopping, managing finances, etc.?: No Are you currently unemployed and looking for a job?: Yes Are you interested in more education?: No Currently or been in a relationship where the following occur: No concerns reported THRIVE Score: 1 AUDIT C Alcohol Use Questionnaire (AUDIT-C) 1. How often do you have a drink containing alcohol?: 2-3 times a week 2. How many drinks containing alcohol do you have on a typical day when you are drinking?: 1 or 2 Total Score: 3 RAMAKRISHNA-7 AMB Questionnaire RAMAKRISHNA-7 Date RAMAKRISHNA - 7 assessed: 12/08/24 Feeling nervous, anxious, or on edge: 2 = More than half the days Not being able to stop or control worryin = Not at all Worrying too much about different things: 0 = Not at all Trouble relaxin = Several days Being so restless that it is hard to sit still: 3 = Nearly every day Becoming easily annoyed or irritable: 2 = More than half the days Feeling afraid as if something awful might happen: 0 = Not at all Total RAMAKRISHNA-7 score (0-4 normal; 5-9 mild; 10-14 moderate; 15-21 severe): 8 Source: Developed by Drs. Michel Valles, Radha Horton, Jorge Walter and colleagues, with an educational ashley from [employer]. Review of Systems Const Denies body aches, Denies chills, Denies fever(s), Denies headache(s) and Denies poor appetite Eyes Reports no additional complaints ENT Denies dysphagia, Denies dizziness, Denies headache(s) and Denies odynophagia Card Denies chest pain, Denies syncope, Denies edema, Denies irregular heart rhythm, Denies lightheadedness and Denies dyspnea Resp Denies cough and Denies dyspnea GI Denies abdominal pain, Denies constipation, Denies dysphagia, Reports dyspepsia, Reports heartburn, Denies diarrhea, Denies nausea, Denies odynophagia and Denies vomiting Reports no additional complaints Musc Reports no additional complaints and Denies abnormal gait Skin/Breast Reports system reviewed and no additional complaints, except as documented Neuro Denies abnormal gait, Denies dizziness, Denies syncope and Denies headache(s) Psych Reports no additional complaints Physical exam (Primary Care) Vital Signs: Last Vital Signs Pulse 97 12/08/24 11:41 BP 132/62 12/08/24 11:41 Pulse Ox 96 12/08/24 11:41 BMI result Body Mass Index 27.9 Tobacco/Smoking Status: Tobacco use Status Tobacco use date assessed 05/04/24 12/08/24 11:45 Patient Tobacco Use Status Current everyday Tobacco 12/08/24 11:45 Tobacco use type Cigarette 12/08/24 11:45 e-Cigarette/Vaping Use Never Used 12/08/24 11:45 PHQ-9: PHQ-9 Score PHQ-9: Total score 7 12/08/24 12:01 Depression Screening Interpretation: Positive Depression Screening Follow-up: Existing condition and In treatment Thrive Assessment: Date of Thrive Assessment Date Thrive assessed 12/08/24 12/08/24 11:45 Currently or been in a relationship where the following occur: No concerns reported Const General: cooperative, healthy appearing, comfortable and no acute distress Orientation/consciousness: patient oriented x3 [facility] Head: Yes normocephalic Ears: hearing grossly normal bilaterally General nose exam: Normal external nose present Eyes General: appearance normal, both eyes and all related structures Conjunctivae: conjunctivae normal Neck Neck: Yes full ROM and Yes no lymphadenopathy Resp Effort & Inspection: normal respiratory effort Auscultation: clear to auscultation bilaterally, no crackles, no rales, no rhonchi and no wheezes Cardio Rate: regular rate Rhythm: regular rhythm Skin General skin exam: no rashes or lesions noted Neuro General: patient oriented x3 Gait exam (Neuro): Normal gait present Extrem General: Yes normal to inspection, Yes full ROM and No edema Psych Affect: normal affect Attitude: cooperative Insight: Good insight present (Psych) Judgement: Good judgement present (Psych) Results AMB Hemoglobin A1c AMB Hemoglobin A1c 8.9 % Last Edit by Crow Araya MA on 12/08/24 12:03 Results Reviewed Results Reviewed: Laboratory Last Values Hgb A1c (Clinic) 8.9 % (4.0-6.0) H 12/08/24 12:02 Coding Level of Care Code Est Pt Level 4 (72456) Diagnoses Migraine without status migrainosus, not intractable, unspecified migraine type G43.909 Intractability: not intractable Migraine type: unspecified Status migrainosus presence: without status migrainosus Obstructive sleep apnea G47.33 Tobacco abuse Z72.0 Frequent urination at night R35.1 GERD (gastroesophageal reflux disease) K21.9 Type 2 diabetes mellitus with hyperglycemia, without long-term current use of insulin E11.65 Diabetes mellitus complication status: with hyperglycemia Diabetes mellitus meterman insulin use: without meterman use Diabetes mellitus type: type 2 Anxiety F41.9 Assessment & Plan Assessment & Plan (1) Migraines: Comment: increased amitryptyline to 3omg po at bedtime/ increased sumatriptan Code(s): G43.909 - Migraine, unspecified, not intractable, without status migrainosus Category: Medical Qualifiers: Intractability: not intractable Migraine type: unspecified Status migrainosus presence: without status migrainosus Qualified Code(s): G43.909 - Migraine, unspecified, not intractable, without status migrainosus Plan: The patient reports frequent migraines with inadequate relief from current medications, including sumatriptan and amitriptyline. Further evaluation of contributing factors such as sleep apnea and diabetes is planned. Continue to follow with neurology (2) Obstructive sleep apnea: Comment: needs titration Code(s): G47.33 - Obstructive sleep apnea (adult) (pediatric) Category: Medical Plan: Uses CPAP faithfully at least 4 hours a night and benefits from this therapy. Continue to follow with neurology and scheduled for titration study later this month. (3) Tobacco abuse: Comment: smoking cessation is offerred. Code(s): Z72.0 - Tobacco use Category: Medical Plan: Smoking cigarettes and the use of tobacco can be harmful. We discussed the importance of stopping and options to aid in smoking cessation. Continue on Wellbutrin but plan to move this to the AM dosing as he becomes jittery after taking this medication and he believes it may be contributing to his insomnia. Declining NRT today (4) Frequent urination at night: Comment: urology referral Code(s): R35.1 - Nocturia Category: Medical Plan: Patient has a referral to Urology and is scheduled to be seen in January. His A1c is elevated in the office today which was likely a contributing factor to his nocturia. Plan to manage blood sugars and obtain PSA (5) GERD (gastroesophageal reflux disease): Code(s): K21.9 - Gastro-esophageal reflux disease without esophagitis Category: Medical Plan: Avoid trigger foods such as citrus, tomato products, soda, caffeine, spicy foods and other foods that may be irritating to your stomach. Avoid laying flat 3-4 hours after eating and elevate the head of the bed 30 degrees to prevent acid from moving into the esophagus. Reflux not well managed. He did not have appointment scheduled after referral to GI in May and I updated this referral today. Plan to increase omeprazole to 40 mg (6) Diabetes: Code(s): E11.9 - Type 2 diabetes mellitus without complications Category: Medical Qualifiers: Diabetes mellitus complication status: with hyperglycemia Diabetes mellitus meterman insulin use: without penitentiary use Diabetes mellitus type: type 2 Qualified Code(s): E11.65 - Type 2 diabetes mellitus with hyperglycemia Plan: Decrease the amount of carbohydrates such as pasta, bread, rice, and potatoes and limit the amount of sweets. Although fruits are generally healthy they should be eaten in moderation as they are still high in sugar. Hemoglobin A1c goal of less than 7%. A1c in the office today 8.9% which has above his goal. Discussed recommendations for medication management at this time as his A1c is significantly elevated however patient is declining medication. He does understand risks prolonged elevated blood sugars including but not limited to heart attack and stroke. He continues to decline medication and states he has been having a poor diet as of lately and would like to work on dietary modification and follow up in 3 months. Discussed with the patient if A1c remains elevated medication will once again be recommended (7) Anxiety: Code(s): F41.9 - Anxiety disorder, unspecified Category: Medical Plan: Feels his anxiety is well managed at this time Plan During the visit, we discussed the management of the patient's migraines, diabetes, and GERD. I recommended dietary changes to manage diabetes and explained the risks of high A1c levels. We also discussed increasing the omeprazole dosage for GERD and the importance of the upcoming sleep apnea titration study. I encouraged smoking cessation and provided options for nicotine replacement therapy, which the patient declined. Follow-up appointments and further evaluations were planned to monitor the patient's conditions. This note was constructed using voice recognition software. While every effort has been made to ensure accuracy and cnc cutting operator, still areas may have been included sometimes these areas may affect the content or meeting of the given symptoms. Total time spent caring for the patient today was 20 minutes. This includes time spent before the visit reviewing the chart, time spent during the visit, and time spent after the visit and documentation. Patient was informed and verbally consented to the use of an ambient scribe for clinic note documentation during this visit. Orders: Orders PSA, Ultra Sensitive Today Z12.5 - Encounter for screening for malignant neoplasm of prostate Microalbumin, Random (w Creat) Today E11.9 - Type 2 diabetes mellitus without complications, R35.1 - Nocturia Lipid Panel Today Z13.220 - Encounter for screening for lipoid disorders AMB Hemoglobin A1c Today E11.65 - Type 2 diabetes mellitus with hyperglycemia UA CC w/rflx Micro + Cult Today R35.1 - Nocturia, R35.89 - Other polyuria Referrals Lung Cancer Screening Referral Z72.0 - Tobacco use Gastroenterology Referral K21.9 - Gastro-esophageal reflux disease without esophagitis, R63.4 - Abnormal weight loss, Z12.11 - Encounter for screening for malignant neoplasm of colon Optometry Referral G43.909 - Migraine, unspecified, not intractable, without status migrainosus, Z00.00 - Encounter for general adult medical examination without abnormal findings Medications: New omeprazole 40 mg PO DAILY 90 caps 0RF Discontinued omeprazole Discontinued Reason: Patient no longer taking 20 mg PO DAILY 90 caps 1RF
== END 2024-12-08 12:18 | disposition home or self-care (01) ==
LOC: HO.HMCH 11:27
DX: E11.65 Type 2 diabetes mellitus with hyperglycemia (principal); G43.909 Migraine, unspecified, not intractable, without status migrainosus; G47.33 Obstructive sleep apnea (adult) (pediatric); Z72.0 Tobacco use; R35.1 Nocturia; K21.9 Gastro-esophageal reflux disease without esophagitis; F41.9 Anxiety disorder, unspecified

== ENCOUNTER → 2024-12-08 11:27 | Outpatient (BNVA) | payer MEDICARE, SELFPAY | DX: G43.909 Migraine, unspecified, not intractable, without status migrainosus (principal); G47.33 Obstructive sleep apnea (adult) (pediatric); R35.1 Nocturia; K21.9 Gastro-esophageal reflux disease without esophagitis; E11.65 Type 2 diabetes mellitus with hyperglycemia; F41.9 Anxiety disorder, unspecified; F17.200 Nicotine dependence, unspecified, uncomplicated; Z71.6 Tobacco abuse counseling | CPT/HCPCS: 83036; 99212 ==

== ENCOUNTER 2024-12-15 08:23 | Outpatient (REF) | payer MEDICARE, SELFPAY ==
[2024-12-15 09:23] LABS: Hemoglobin A1C 312.4659 umol/L; Total Hemoglobin (HGBA1C) 3925.2547 umol/L
[2024-12-15 09:35] LABS: Appearance Urine Clear; Glucose Urine UA 500 mg/dL (Negative); PH 7.5 (5.0-9.0); Specific Gravity - Urine 1.010 (1.005-1.025)
[2024-12-15 09:46] LABS: Cholesterol 171 mg/dL (<200); HDL Cholesterol 52 mg/dL (>40); Magnesium 2.0 mg/dL (1.6-2.6); Triglycerides 139 mg/dL (<150)
[2024-12-15 10:05] LABS: Ferritin 104 ng/mL (20-250)
[2024-12-15 10:15] LABS: Microalbum/Creatinine Ratio Ur 5.8 ug/mg cr (<30)
[2024-12-22 23:03] LABS: PSA, Ultra Sensitive 0.34 ng/mL
== END 2024-12-15 08:24 | disposition home or self-care (01) ==
LOC: HO.LAB 08:23
PROVIDERS: Visit Provider Physician Assistant Medical
DX: Z12.5 Encounter for screening for malignant neoplasm of prostate (principal); Z13.220 Encounter for screening for lipoid disorders; R53.83 Other fatigue; E11.9 Type 2 diabetes mellitus without complications; G47.19 Other hypersomnia; R35.89 Other polyuria; R35.1 Nocturia; G47.9 Sleep disorder, unspecified
CPT/HCPCS: 36415; 80061; 81003; 82043; 82306; 82570; 82728; 83036; 83090; 83735; 83921; 84153; 84443

== ENCOUNTER 2024-12-24 12:55 | Outpatient (AMB) | payer MEDICARE, SELFPAY ==
[2024-12-24 13:12] VITALS: BP 131/71; PULSE 79; BMI 27.8
--- NOTE | 2024-12-24 13:12 | A.OFFVIS_ITS ---
Vital Signs 12/24/24 13:12 Height 6 ft 2 in Weight 216 lb 7.903 oz BMI 27.8 BP 131/71 Blood Pressure Location Lt brachial Position Sitting Pulse 79 Intake Visit Reasons: Abnormal weight loss, GERD Intake Note: New patient in office today for GERD and weight loss. CC: Patient c/o bad heartburn for years states that he had an ulcer years ago and it was treated. PT c/o vomiting in the morning, constipation, abdominal bloating, and epigastric pain. He also reports weight going up and down. 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 Accompanied by: Self / Same As Patient Allergies morphine (MORPHINE) Allergy (Unknown, Verified 12/24/24 13:18) RASH Medication List - Last Reconciled 12/24/24 by Rasheeda Barrow CNP acetaminophen (Tylenol Extra Strength) 1,000 mg PO BID PRN amitriptyline 30 mg (3 x 10 mg) PO BEDTIME bupropion HCl SR 100 mg PO BEDTIME cholecalciferol (vitamin D3) 25 mcg PO DAILY magnesium oxide 400 mg PO DAILY 90 days naproxen sodium (Aleve) 440 mg PO DAILY omeprazole 40 mg PO DAILY sumatriptan succinate take 1 tab at onset of headache; if no relief may repeat 1 tab after at least 2 hrs; max = 4 tabs/24 hr PO 1 month MDD 100mg HPI HPI Abnormal weight loss, GERD: Details: Patient is a 57-year-old male with PMH of anxiety, sleep apnea, diabetes,. Referred by PCP for pre colonoscopy screening and further evaluation of weight loss and GERD. This will be his 1st colonoscopy. Bereket reports acid reflux symptoms for the past 10 years, initially following treatment for a gastric ulcer. Describes persistent burning and regurgitation after eating, sometimes prior to eating, with associated intermittent abdominal bloating, sensation of abdominal hardness, and severe pain. Current therapy is omeprazole, previously effective but now with diminished benefit; medication often taken in the evening with or without food. Also reports chronic constipation for several months, characterized by hard stools, infrequent bowel movements (sometimes every three days), and associated abdominal pain that resolves after defecation; dietary fiber interventions have not been helpful. Occasionally experiences nausea and vomiting, with last episode two days ago and no clear trigger; nausea and vomiting have been ongoing for years with unchanged frequency. Endorses episodic weight fluctuations over years, ranging from 190?228 lbs without intentional change; clothing size fluctuates accordingly. Takes NSAIDs (Aleve) frequently for headaches. History notable for prior ulcer and cholecystectomy. No family history of GI malignancy. Patient denies: fever/chills, appetite changes, dysphasia, unintentional wt loss or melena/hematochezia. Social hx: -ETOH use, 48oz of beer with couple shot 2-3x/week -smokes marijuana 1-2x/months, denies other recreational drug use -current 1ppd smoker - family hx as below -denies personal hx of CA -denies significant cardiopulmonary history -tolerated anesthesia in the past without difficulty. [facility] Medical History (Updated 12/24/24 @ 14:05 by Rasheeda Barrow CNP) Unintentional weight change Epigastric pain Constipation Surgical History H/O knee surgery Hx of cholecystectomy History of lumbar fusion S/P ACL repair S/P nasal surgery Family History Maternal Grandmother Renal cancer Social History Housing: House Alcohol intake: current Alcohol intake frequency: a few times a week Alcohol type: beer Patient Tobacco Use Status: Current everyday Tobacco user Tobacco use type: Cigarette Cigarette Packs Per Day: 0.5 Cigarettes Per Day: 10 Years Smoked: 30 e-Cigarette/Vaping Use: Never Used Second Hand Smoke Exposure: Yes Substance Use Type: Marijuana service: No Current occupational status: unemployed Cognitive needs: No Hearing needs: No Vision needs: No Review of Systems Const Reports as per HPI ENT Reports as per HPI Card Reports as per HPI Resp Reports as per HPI GI Reports as per HPI Reports as per HPI Physical Exam Vital Signs: Last Vital Signs Pulse 79 12/24/24 13:12 BP 131/71 12/24/24 13:12 BMI result Body Mass Index 27.8 Const General: healthy appearing, no acute distress and well developed Nutritional Appearance: average body habitus Orientation/consciousness: patient oriented x3 HEENT Head: Yes normal to inspection, Yes normocephalic and Yes atraumatic Face and sinus: Yes normal facial exam Eyes General: appearance normal, both eyes and all related structures Neck Neck: Yes normal visual inspection Resp Effort & Inspection: normal respiratory effort, able to speak in complete sentences, no tracheal deviation and symmetric chest movement GI Inspection: Yes normal to inspection and No distended Palpation (GI): Soft to palpation, not firm, Tenderness to palpation present (GI) in the epigastrum and No hepatosplenomegaly present Auscultation: normal bowel sounds Neuro General: patient oriented x3 Gait exam (Neuro): Normal gait present Psych Appearance: grossly normal Mental Status: mental status grossly normal Speech and movement: Normal speech and movement present Affect: normal affect Attitude: cooperative Thought process: Normal thought process present Thought content: Normal thought content present Insight: Good insight present (Psych) Judgement: Good judgement present (Psych) Assessment & Plan Assessment & Plan (1) Screening for colorectal cancer: Code(s): Z12.11 - Encounter for screening for malignant neoplasm of colon; Z12.12 - Encounter for screening for malignant neoplasm of rectum Category: Medical Plan: Due for index screening colonoscopy. Subjective weight loss, without other alarm features. We will review prep in detail at follow up. (2) GERD (gastroesophageal reflux disease): Code(s): K21.9 - Gastro-esophageal reflux disease without esophagitis Category: Medical Qualifiers: Esophagitis presence: esophagitis presence not specified Qualified Code(s): K21.9 - Gastro-esophageal reflux disease without esophagitis Plan: - Longstanding reflux post-gastric ulcer, incomplete symptom control, chronic NSAID use, alcohol consumption, high risk for ulcer recurrence. - Additional Testing: Urea breath test for H. pylori (hold PPI x2 wks, initiate sucralfate), urgent upper GI series; plan for EGD in conjunction with colonoscopy. - Medication Management: Hold omeprazole prior to H. pylori test, start sucralfate BID PRN. Educate re: omeprazole dosing (AM, empty stomach, 30 min before food/drink except water). Cease Aleve and all NSAIDs; use Tylenol only PRN for pain, max 4g/day. - Lifestyle Recommendations: Avoid alcohol, spicy/fatty/fried/caffeinated/acidic foods, smaller/frequent meals, elevate head of bed, avoid lying down post- prandially; consider trial of symptom diary. Aim for alcohol reduction/cessation; avoid marijuana if worsening symptoms. - Follow-Up: Reassess in 8 wks (Rasheeda Barrow NP) for response and prep for EGD/colonoscopy; nursing/MA visit in 2 wks for breath test. (3) Constipation: Code(s): K59.00 - Constipation, unspecified Category: Medical Qualifiers: Constipation type: unspecified constipation type Qualified Code(s): K59.00 - Constipation, unspecified Plan: Hard, infrequent stools, incomplete relief with dietary modification, impact on quality of life. Additional Testing: None specified at this stage; monitoring of stool form per [place] scale. Medication Management: Initiate Miralax QD; titrate as needed based on stool form. Continue hydration and dietary fiber. Lifestyle Recommendations: Encourage regular hydration, increased dietary fiber (fruits, vegetables, legumes, whole grains, nuts, seeds), maintain physical activity as tolerated. Follow-Up: Review stool pattern and efficacy of regimen at next visit (8 wks); consider Rx alternatives if inadequate response. (4) Unintentional weight change: Code(s): R68.89 - Other general symptoms and signs Category: Medical Plan: Patient-reported wide fluctuations without objective in-clinic correlation; may be scale-dependent or due to non-GI factors. Diabetic not on treatment. Recent TSH WNL. Additional Testing: -Recommend home digital scale for objective monitoring; record weights, track clothing fit. -LDCT pending -Colonoscopy screening pending Medication Management: -will need pharmacological management for diabetes, A1c 9.4 collected 12/15/2024. Medication selection deferred to PCP Lifestyle Recommendations: Maintain food/weight diary; report any new symptoms such as persistent weight loss, night sweats, or hemoccult positivity. Follow-Up: Review at next visit; earlier reassessment for concerning change. Plan Follow-up in 8 weeks or sooner as needed Time: I spent a total of 35 minutes on the date of encounter which includes: Preparing to see the patient (reviewed previous documentation, test results and medical history) Performing a medically appropriate exam and/or evaluation Ordering medications, tests, and procedures Documenting clinical information in the health record Orders: Orders H Pylori Breath Test Today FL upper GI small bowel Today K21.9 - Gastro-esophageal reflux disease without esophagitis, R10.13 - Epigastric pain Referrals GI Procedure Notification K21.9 - Gastro-esophageal reflux disease without esophagitis, Z12.11 - Encounter for screening for malignant neoplasm of colon, Z12.12 - Encounter for screening for malignant neoplasm of rectum Medications: New sucralfate Take 10mL up to twice daily as needed upset stomach 1 g (10 mL) PO BID PRN 500 mL 0RF acid reflux polyethylene glycol 3350 (Miralax) Take 17G (one cap full) daily with 8oz of water 17 grams PO DAILY 510 grams 2RF constipation 30 days On Hold omeprazole Hold Comment: Doctor's Order 40 mg PO DAILY 90 caps 0RF Coding Level of Care Code New Pt New Pt Level 3 (16662) Patient Type New Diagnoses Screening for colorectal cancer Z12.11; Z12.12 Gastroesophageal reflux disease, unspecified whether esophagitis present K21.9 Esophagitis presence: esophagitis presence not specified Constipation, unspecified constipation type K59.00 Constipation type: unspecified constipation type Unintentional weight change R68.89
== END 2024-12-24 13:52 | disposition home or self-care (01) ==
LOC: HO.HGI 12:56
PROVIDERS: Visit Provider Nurse Practitioner Family
DX: K21.9 Gastro-esophageal reflux disease without esophagitis (principal); K59.00 Constipation, unspecified; R63.4 Abnormal weight loss
CPT/HCPCS: 99203

== ENCOUNTER → 2024-12-24 12:55 | Outpatient (BNVA) | payer MEDICARE, SELFPAY | PROVIDERS: Visit Provider Nurse Practitioner Family | DX: Z01.818 Encounter for other preprocedural examination (principal); K21.9 Gastro-esophageal reflux disease without esophagitis; R63.4 Abnormal weight loss; K59.00 Constipation, unspecified | CPT/HCPCS: 99202 ==

== ENCOUNTER 2025-01-11 10:57 | Outpatient (AMB) | payer MEDICARE, SELFPAY ==
--- NOTE | 2025-01-11 11:13 | AM.OFFVISNUR ---
Intake Visit Reasons: hpylori Intake Note: Pt presents for H Pylori BT. Protocols reviewed with pt and confirmed to be followed. Pt advised of instructions for the test and began testing at 1120. Testing was concluded at 1135. No questions or additional concerns per pt at the end of testing. Advised pt that we will contact them with results when they are obtained. Professional Bass Fisherman Required: No Accompanied by: Self / Same As Patient Allergies morphine (MORPHINE) Allergy (Unknown, Verified 12/24/24 13:18) RASH Assessment & Plan Assessment & Plan (1) GERD (gastroesophageal reflux disease): Code(s): K21.9 - Gastro-esophageal reflux disease without esophagitis Category: Medical Qualifiers: Esophagitis presence: esophagitis presence not specified Qualified Code(s): K21.9 - Gastro-esophageal reflux disease without esophagitis (2) Constipation: Code(s): K59.00 - Constipation, unspecified Category: Medical Qualifiers: Constipation type: unspecified constipation type Qualified Code(s): K59.00 - Constipation, unspecified (3) Epigastric pain: Code(s): R10.13 - Epigastric pain Category: Medical Coding Level of Care Code Established Pt Procedure Only Patient Type Established Diagnoses Gastroesophageal reflux disease, unspecified whether esophagitis present K21.9 Esophagitis presence: esophagitis presence not specified Constipation, unspecified constipation type K59.00 Constipation type: unspecified constipation type Epigastric pain R10.13
== END 2025-01-11 11:52 | disposition home or self-care (01) ==
LOC: HO.HGI 10:58
PROVIDERS: Visit Provider Nurse Practitioner Family
DX: K21.9 Gastro-esophageal reflux disease without esophagitis (principal); K59.00 Constipation, unspecified; R10.13 Epigastric pain

== ENCOUNTER 2025-01-11 10:57 | Outpatient (REF) | payer MEDICARE, SELFPAY | END 2025-01-11 10:58 | disposition home or self-care (01) | LOC: HO.LNP 10:57 | PROVIDERS: Visit Provider Nurse Practitioner Family | DX: Z11.2 Encounter for screening for other bacterial diseases (principal) | CPT/HCPCS: 83013; 99211 ==

== ENCOUNTER 2025-01-24 10:55 | Outpatient (AMB) | payer MEDICARE, SELFPAY ==
--- NOTE | 2025-01-24 11:05 | MHC.OFFVIS ---
Intake Visit Reasons: nocturia Intake Note: Patient is present for NOCTURIA Urology Medication:NONE Antibiotic Allergy:NONE Blood Thinner:NONE TODAY'S PVR:27ML'S Rv Service Technician Required: No Allergies morphine (MORPHINE) Allergy (Unknown, Verified 01/24/25 11:45) RASH Medication List - Last Reconciled 01/24/25 by ALIN Tabor- acetaminophen (Tylenol Extra Strength) 1,000 mg PO BID PRN amitriptyline 30 mg (3 x 10 mg) PO BEDTIME bisacodyl (Dulcolax (bisacodyl)) 20 mg (4 x 5 mg) PO ONCE 1 day bupropion HCl SR 100 mg PO BEDTIME cholecalciferol (vitamin D3) 25 mcg PO DAILY magnesium oxide 400 mg PO DAILY 90 days naproxen sodium (Aleve) 440 mg PO DAILY omeprazole 40 mg PO DAILY Held on 12/24/24. Instructions: Doctor's Order polyethylene glycol 3350 (Miralax) 17 grams PO DAILY 30 days polyethylene glycol 3350 (Miralax) 238 grams PO ONCE 1 day sucralfate 1 g (10 mL) PO BID PRN sumatriptan succinate take 1 tab at onset of headache; if no relief may repeat 1 tab after at least 2 hrs; max = 4 tabs/24 hr PO 1 month MDD 100mg HPI Comments Details: Kaushik vinson is a pleasant 55-year-old male patient of Dr. Falcon. He has a past medical history of obstructive sleep apnea in constipation. He presents to the office today as a new patient for nocturia. In discussion with the patient today he reports having followed up with his PCP in discussing ongoing issues of nocturia up to 6-8 times per night at which time recommendations were made for urology referral for further assessment evaluation. In review of patient's chart it does appear PSA 12/23 0.3. When asked he does report noncompliance with CPAP for his sleep apnea. We did discussed correlation of nocturia and sleep apnea. He otherwise denies any bothersome urinary issues throughout the day. He denies urinary urgency, urinary frequency, incontinence, nocturia, hematuria, dysuria, foul smelling urine, changes to urinary stream, flank pain, fever, and or chills. He does report at times he experiences episodes of urinary hesitancy and incomplete bladder emptying however describes these episodes as infrequent. In office urinalysis results reviewed with the patient today. PVR 27 mL. JACQUI was offered however deferred. We discussed at length potential causes of nocturia as well as further treatment options and risks and benefits of these treatment options. All questions were answered. He otherwise offers no other issues or concerns at this time. 1. Nocturia The patient experiences nocturia, could be exacerbated by untreated sleep apnea. A bladder and kidney ultrasound will be ordered to rule out any structural abnormalities. The patient is advised to follow up with his sleep specialist to explore alternative treatments for sleep apnea. 2. Sleep Apnea The patient has a history of sleep apnea but is unable to tolerate CPAP therapy due to claustrophobia. He is encouraged to consult with his sleep specialist to explore alternative treatment options. 3. Proteinuria Proteinuria was noted in the urinalysis, though no film sound engineer is currently involved in the patient's care. Further evaluation may be necessary if proteinuria persists. Discussion Notes I discussed with the patient the potential link between his nocturia and untreated sleep apnea, emphasizing the importance of addressing sleep apnea to potentially alleviate nocturia symptoms. We reviewed alternative treatment options for nocturia. A bladder and kidney ultrasound was recommended to rule out structural abnormalities, and the patient was informed about the presence of protein in his urine, suggesting further evaluation if it persists. [facility], [facility] Medical History Unintentional weight change Epigastric pain Constipation Surgical History H/O knee surgery Hx of cholecystectomy History of lumbar fusion S/P ACL repair S/P nasal surgery Family History Maternal Grandmother Renal cancer Social History Housing: House Alcohol intake: current Alcohol intake frequency: a few times a week Alcohol type: beer Patient Tobacco Use Status: Current everyday Tobacco user Tobacco use type: Cigarette Cigarette Packs Per Day: 0.5 Cigarettes Per Day: 10 Years Smoked: 30 e-Cigarette/Vaping Use: Never Used Second Hand Smoke Exposure: Yes Substance Use Type: Marijuana service: No Current occupational status: unemployed Cognitive needs: No Hearing needs: No Vision needs: No Review of Systems Const All systems reviewed & are unremarkable except as noted in HPI and below Physical Exam Const General: cooperative, comfortable, no acute distress, well developed, alert, awake and tired appearing Orientation/consciousness: patient oriented x3 Limitations: no limitations HEENT Head: Yes normal to inspection, Yes normocephalic and Yes atraumatic Ears: hearing grossly normal bilaterally Eyes General: appearance normal, both eyes and all related structures Neck Neck: Yes normal visual inspection and Yes trachea midline Chest Chest palpation & inspection: normal inspection of the chest Resp Effort & Inspection: normal respiratory effort and able to speak in complete sentences Cardio Rate: regular rate GI Inspection: Yes normal to inspection General: Yes no CVA tenderness Back/Spine/Pelvis Back: no CVA tenderness Skin General skin exam: no rashes or lesions noted Neuro General: patient oriented x3 Extrem General: Yes normal to inspection Psych Appearance: grossly normal and well kempt Mental Status: mental status grossly normal Speech and movement: Normal speech and movement present and Clear speech present Affect: normal affect Attitude: cooperative Thought process: Normal thought process present Thought content: Normal thought content present Insight: Fair insight present (Psych) Judgement: Fair judgement present (Psych) Office Procedures Post Void Residual Post Residual Void Post Void Residual (PVR): 27 49021-Scax Void Residual by ultrasound Results AMB Urinalysis, Automated UA Leukoctes 0 Ravi/uL Last Edit by GAMA Morrison on 01/24/25 11:24 UA Nitrite Negative Last Edit by GAMA Morrison on 01/24/25 11:24 UA Urobilinogen 0.2 mg/dL Last Edit by GAMA Morrison on 01/24/25 11:24 UA Protein 30 mg/dL Last Edit by GAMA Morrison on 01/24/25 11:24 UA pH 6.0 Last Edit by GAMA Morrison on 01/24/25 11:24 UA Blood 0 Jose A/uL Last Edit by GAMA Morrison on 01/24/25 11:24 UA Specific [place] 1.020 Last Edit by GAMA Morrison on 01/24/25 11:24 UA Ketone Negative Last Edit by GAMA Morrison on 01/24/25 11:24 UA Bilirubin 0 mg/dL Last Edit by GAMA Morrison on 01/24/25 11:24 UA Glucose 100 mg/dL Last Edit by GAMA Morrison on 01/24/25 11:24 Results Reviewed Results Reviewed: Laboratory Last Values Urine pH (Auto) 6.0 01/24/25 11:23 Specific [place] (Auto) 1.020 01/24/25 11:23 Urine Protein (Auto) 30 mg/dL 01/24/25 11:23 Glucose (UA)(Auto) 100 mg/dL 01/24/25 11:23 Urine Ketones (Auto) Negative 01/24/25 11:23 Urine Blood (Auto) 0 Jose A/uL 01/24/25 11:23 Urine Nitrite (Auto) Negative 01/24/25 11:23 Urine Bilirubin (Auto) 0 mg/dL 01/24/25 11:23 Urine Urobilinogen (Auto) 0.2 mg/dL 01/24/25 11:23 Leukocyte Esterase (Auto) 0 Ravi/uL 01/24/25 11:23 Assessment & Plan Assessment & Plan (1) Frequent urination at night: Comment: urology referral Code(s): R35.1 - Nocturia Category: Medical Plan In office urinalysis results with the patient today; as noted above. PVR 27 mL. We did discussed potential causes of nocturia as well as further treatment options and risks and benefits of these treatment options. JACQUI was offered however deferred. Recent PSA results reviewed with the patient today; as noted above. Will obtain retroperitoneal ultrasound for further assessment evaluation. We did discussed importance of limiting fluids 2-3 hours prior to bed to decrease episodes of nocturia. All questions were answered. Follow-up in 1-3 months with imaging and PVR; or sooner with any issues, concerns, and or questions. Orders: Orders AMB Urinalysis Automated Today Z13.9 - Encounter for screening, unspecified US retroperitoneal comp Today R35.1 - Nocturia Patient Instructions: The patient had an opportunity to ask questions regarding the treatment plan. All questions were answered. Physical exam, labs, and imaging were discussed and reviewed in detail. As well as risks, benefits, and discussion of treatment choices. No major barriers to understanding were identified. The patient expressed understanding and agreement with the above treatment plan. The patient was made aware they should contact our office by phone for worsening of their current condition, the appearance of new symptoms, or with any questions or concerns. Compliance is encouraged with any medications and follow up testing that is ordered. It is a privilege to be allowed the opportunity to participate in? your urological care.? Again, if you have any questions or concerns If you have any questions or concerns please do not hesitate to contact me. The office is [phone]. This note is constructed using voice recognition software. While every effort has been made to ensure accuracy shank maker errors may have been included. Yours sincerely, ALIN Tabor-CANDELARIA Coding Level of Care Code New Pt Level 3 (02476) Diagnoses Frequent urination at night R35.1 CPT Codes Post Residual Void - PVR CPT Code: 11912-Xolu Void Residual by ultrasound ([id number])
== END 2025-01-24 11:47 | disposition home or self-care (01) ==
LOC: HO.HUSH 10:57
PROVIDERS: Visit Provider Nurse Practitioner Family
DX: R35.1 Nocturia (principal); Z13.9 Encounter for screening, unspecified
CPT/HCPCS: 99203

== ENCOUNTER → 2025-01-24 10:55 | Outpatient (BNVA) | payer MEDICARE, SELFPAY | PROVIDERS: Visit Provider Nurse Practitioner Family | DX: R35.1 Nocturia (principal); F17.210 Nicotine dependence, cigarettes, uncomplicated; Z13.9 Encounter for screening, unspecified | CPT/HCPCS: 51798; 81003; 99202 ==